=== PATIENT | male | born 1965 | race American Indian/Alaskan Native ===

== ENCOUNTER 2017-01-07 09:58 | Outpatient (CLI) | payer MEDICARE ==
[2017-01-07] MEDS ORDERED: XYLOCAINE TOPICAL 4% TP ONE (10:24)
== END 2017-01-07 09:59 | disposition home or self-care (01) ==
LOC: WOUND 09:58
PROVIDERS: ATTEND Surgery
DX: T81.89XA Other complications of procedures, not elsewhere classified, initial encounter (principal); I11.0 Hypertensive heart disease with heart failure; I50.9 Heart failure, unspecified; Z72.89 Other problems related to lifestyle; Y83.8 Other surgical procedures as the cause of abnormal reaction of the patient, or of later complication, without mention of misadventure at the time of the procedure; Y92.89 Other specified places as the place of occurrence of the external cause
CPT/HCPCS: 11042; G0463

== ENCOUNTER 2017-07-19 10:58 | Day surgery (SDC) | payer MEDICARE ==
[~2017-07-19 10:58] MED LIST: ANCEF/STERILE WATER 2 GM/20 ML 2 GM/20 ML SYRINGE IV NR; NACL 0.9% 1000 ML 1,000 ML IV SCH; VERSED IV NR
[2017-07-19 13:00] LABS: Basophils % (Auto) 0.5 % (0.0-1.8); Eosinophils # (Auto) 0.1 K/mm3 (0.0-0.4); Eosinophils % (Auto) 1.4 % (0.0-4.3); Hematocrit 35.4 % (35.5-45.6); Hemoglobin 11.2 gm/dl (11.8-15.2); Lymphocytes # (Auto) 0.8 K/mm3 (1.2-5.4); Lymphocytes % (Auto) 8.2 % (13.4-35.0); Mean Corpuscular HGB Conc 32 % (32-34); Mean Corpuscular Volume 80 fl (84-94); Monocytes # (Auto) 0.6 K/mm3 (0.0-0.8); Monocytes % (Auto) 5.9 % (0.0-7.3); Platelet Count 218 K/mm3 (140-440); Red Blood Count 4.41 M/mm3 (3.65-5.03); Red Cell Distribution Width 17.2 % (13.2-15.2)
[2017-07-19] MEDS ORDERED: HumuLIN R IV ONE ×2 (13:03→20:00)
[2017-07-19 13:06] LABS: Mean Corpuscular Hemoglobin 26 pg (28-32)
[2017-07-19] MEDS ORDERED: XYLOCAINE MPF 2% ONE (13:11)
[2017-07-19] MEDS ORDERED: DIPRIVAN 10 MG/ML IV ONE ×2 (13:11→13:58)
[2017-07-19] MEDS ORDERED: SUBLIMAZE ONE ×2 (13:12→14:15)
[2017-07-19 13:21] LABS: Calcium 9.5 mg/dL (8.4-10.2)
[2017-07-19] MEDS ORDERED: MARCAINE 0.5% INFILTRATI ONE (14:07)
[2017-07-19] MEDS ORDERED: PROTAMINE SULFATE ONE (14:07)
[2017-07-19] MEDS ORDERED: SODIUM BICARBONATE ONE (14:08)
[2017-07-19] MEDS ORDERED: HEPARIN 10,000 UNITS/10 ML ONE (14:08)
[2017-07-19] MEDS ORDERED: XYLOCAINE 1%/ EPI 1:100,000 INFILTRATI ONE ×2 (14:08→16:43)
[2017-07-19] MEDS ORDERED: NACL 0.9% 500 ML 500 ML ONE (14:08)
--- NOTE | 2017-07-19 14:18 | Anesthesia Day of Surgery ---
Anesthesia Day of Surgery - Day of Surgery Patient Examined: Yes Patient H&P Reviewed: Yes Patient is NPO: Yes
--- NOTE | 2017-07-19 14:19 | Anesthesia Consultation ---
Anesthesia Consult and Med Hx Date of service: 07/19/17 - Airway Anesthetic Teeth Evaluation: Good ROM Head & Neck: Adequate Mental/Hyoid Distance: Inadequate Mallampati Class: Class III Intubation Access Assessment: Possibly Difficult - Pulmonary Exam CTA: Yes - Cardiac Exam Cardiac Exam: RRR - Pre-Operative Health Status ASA Pre-Surgery Classification: ASA4 Proposed Anesthetic Plan: General - Pulmonary Hx Smoking: Yes COPD: Yes (uses O2 sometimes, has not used in over 1 year) - Cardiovascular System Hx Hypertension: Yes (has not taken meds "in a while") Hx Coronary Artery Disease: Yes (2015) Hx Peripheral Vascular Disease: Yes - Central Nervous System Hx Psychiatric Problems: Yes - Endocrine Hx End Stage Renal Disease: Yes (dialysed yesterday) Hx Non-Insulin Dependent Diabetes: Yes - Other Systems Hx Alcohol Use: Yes (occas) Hx Cancer: No Hx Obesity: Yes
[2017-07-19] MEDS ORDERED: ePHEDrine SULFATE ONE (14:31)
[2017-07-19] MEDS ORDERED: RIFADIN ONE (15:41)
[2017-07-19] MEDS ORDERED: NACL 0.9% 50 ML ONE (15:42)
[2017-07-19] MEDS ORDERED: NACL P/F VIAL (10 ML) 10 ML ONE (15:43)
[2017-07-19] MEDS ORDERED: NACL 0.9% 100 ML ONE (15:46)
[2017-07-19] MEDS ORDERED: SODIUM BICARBONATE IV ONE (16:42)
[2017-07-19] MEDS ORDERED: NACL 0.9% 500 ML IV ONE (16:43)
[2017-07-19] MEDS ORDERED: HEPARIN 10,000 UNITS/10 ML IV ONE (16:43)
[2017-07-19] MEDS ORDERED: RIFADIN IV ONE (16:45)
[2017-07-19] MEDS ORDERED: DILAUDID ONE (17:46)
--- NOTE | 2017-07-19 18:14 | Operative Report ---
Operative Report Operative Report: Operative note: Date: 07/19/2017 Preoperative diagnosis: Endstage renal disease on hemodialysis Postoperative diagnosis: Same. Operation: Left arm AV graft creation Surgeon: Xochitl Osei. Asst.: Anesthesia: Gen. EBL: 50 mL Findings: Indications: Operative details: Patient had regional anesthesia done in preoperative area. Then, he was brought to the operating room and placed in supine position with left arm on an arm table. Ultrasound was performed locating brachial artery before takeoff of previous AV fistula as well as axillary vein. Those locations were marked on the skin. Left arm was then prepped and draped in sterile fashion. Timeout was performed and all team members in agreement. First incision was created with 15 blade over medial side of elbow crease in vertical fashion and carried down with electrocautery. Brachial vein was located and taken vessel loop, retracted. Brachial artery was dissected and taken distally and proximally on vessel loops. Next, incision was created with 15 blade over medial upper part of arm in the vertical fashion and carried down with electrocautery. With further dissection axillary vein was identified medial to brachial artery, deep within fibers of biceps. It was taken on vessel loop. 4-7 millimeter AcuSeal graft was tunneled with Naomi Wick tunneler in a curvilinear fashion. At this moment patient was given 2000 units of heparin and allowed to circulate for 3 minutes. Proximal and distal controls were gained. 4 mm portion was beveled at the arterial side. Arteriotomy was created with 11 blade and extended with Greene scissors. Anastomosis was created with 6-0 Prolene in circumferential fashion. Graft was open, clamped at the arterial side and flushed with heparinized saline. The next step, graft was transected beveling at the planned venous anastomosis. The vein was clamped with Satinsky clamp gaining simultaneously distal and proximal controls. Venotomy was created with 11 blade and carried with Greene scissors. Circumferential anastomosis was created with 6-0 Prolene and flushed before completion. 2 repair stitches were placed. Both anastomosis were checked for hemostasis. Graft area was palpated and good thrill appreciated. Wounds were irrigated and checked for hemostasis. Incisions were closed in layers with 3-0 Vicryl interrupted dermal and 4-0 Monocryl running subcuticular. Dermabond was applied. Good radial pulse was palpated at the end of procedure as well as graft thrill. All needles and sponge counts were correct. Patient tolerated the procedure well and was transferred to PACU in stable condition.
--- NOTE | 2017-07-19 18:19 | Short Stay Summary ---
Short Stay Documentation Date of service: 07/19/17 - History H&P: obtained from office - Allergies and Medications Current Medications: Allergies No Known Allergies Allergy (Verified 12/04/16 09:51) Home Medications Medication Instructions Recorded Confirmed Last Taken Type Albuterol Sulfate [Ventolin HFA] 2 puff IH Q6H PRN 12/08/16 12/08/16 07/12/17 History Aspirin [Aspirin TAB] 325 mg PO QDAY 12/08/16 12/08/16 07/18/17 History Carvedilol [Coreg] 6.25 mg PO BID 12/08/16 12/08/16 07/18/17 History Citalopram Hydrobromide [celeXA] 20 mg PO DAILY 12/08/16 12/08/16 07/18/17 History Gabapentin [Neurontin] 300 mg PO Q8HR 12/08/16 12/08/16 07/18/17 History HYDROcodone/ACETAMINOPHEN [Vicodin 1 each PO BID 12/08/16 12/08/16 07/12/17 History HP 10-300 mg TAB] Oxycodone HCl/Acetaminophen 1 each PO BID 12/08/16 12/08/16 07/12/17 History [Percocet 7.5/325 mg] glipiZIDE [Glucotrol] 5 mg PO BID 12/08/16 12/08/16 07/18/17 History HYDROcodone/ACETAMINOPHEN [Vicodin 1 tab PO Q6HR PRN #14 tablet 12/10/16 Unknown Rx HP 10-300 mg TAB] Active Medications Cefazolin Sodium (Ancef/Sterile Water 2 Gm/20 Ml) 2 gm in 20 mls @ 80 mls/hr IV PREOP NR; Protocol Stop: 07/19/17 23:00 Sodium Chloride (Nacl 0.9% 1000 Ml) 1,000 mls @ 42 mls/hr IV DIRECT SHANDA Last Admin: 07/19/17 12:45 Dose: 42 mls/hr Sodium Chloride (Nacl 0.9% 1000 Ml) 1,000 mls @ 42 mls/hr IV DIRECT SHANDA Midazolam HCl (Versed) 2 mg IV PREOP NR Stop: 07/19/17 23:59 Last Admin: 07/19/17 13:45 Dose: 2 mg - Brief post op/procedure progress note Date of procedure: 07/19/17 Pre-op diagnosis: ESRD on HD via permcath Post-op diagnosis: same Procedure: left UE AVG placement Anesthesia: ISABEL Surgeon: ALEXANDRE AG Estimated blood loss: 50-100ml Pathology: none - Disposition Condition at discharge: Good Disposition: DC-01 TO HOME OR SELFCARE Short Stay Discharge Plan Diet: renal Wound: open to air Special Instructions: no heavy lifting Follow up with: PRIMARY CAREMD [Primary Care Provider] - 7 Days ALEXANDRE AG DO [Staff Physician] - 14 Days Prescriptions: HYDROcodone/APAP 7.5-325 [[place] 7.5/325] 1 each PO Q6HR PRN #20 tablet PRN Reason: Pain
[2017-07-19] MEDS ORDERED: DILAUDID IV PRN (18:36)
[2017-07-19] MEDS ORDERED: ZOFRAN IV PRN (18:36)
[2017-07-19] MEDS ORDERED: PERCOCET 5/325 PO PRN (18:36)
--- NOTE | 2017-07-19 18:38 | Post Anesthesia Evaluation ---
- Post Anesthesia Evaluation Patient Participated: Yes Airway Patent: Yes Stable Respiratory Function: Yes Nausea/Vomiting: No Temp > 96.8F: Yes Pain Manageable: Yes Adequeate Hydration: Yes Anesthesia Complications: No Block Receding Appropriately: Not Applicable Patient on Ventilator: No
[2017-07-19] MEDS ORDERED: HumuLIN R ONE (19:33)
[2017-07-19] MEDS ORDERED: NORCO 7.5/325 PO PRN (20:17)
[2017-07-19 22:00] VITALS: BP 140/66
== END 2017-07-19 10:59 | disposition home or self-care (01) ==
LOC: OR 10:58
PROVIDERS: ATTEND Surgery Vascular Surgery
DX: I13.2 Hypertensive heart and chronic kidney disease with heart failure and with stage 5 chronic kidney disease, or end stage renal disease (principal); N18.6 End stage renal disease; I50.9 Heart failure, unspecified; I25.10 Atherosclerotic heart disease of native coronary artery without angina pectoris; I25.2 Old myocardial infarction; J44.9 Chronic obstructive pulmonary disease, unspecified; E11.22 Type 2 diabetes mellitus with diabetic chronic kidney disease; E11.51 Type 2 diabetes mellitus with diabetic peripheral angiopathy without gangrene; E66.9 Obesity, unspecified; F17.210 Nicotine dependence, cigarettes, uncomplicated; Z79.899 Other long term (current) drug therapy; Z99.81 Dependence on supplemental oxygen; Z68.41 Body mass index [BMI] 40.0-44.9, adult; Z79.84 Long term (current) use of oral hypoglycemic drugs
CPT/HCPCS: 36415; 36830; 80048; 82962; 85025; C1768; J0690; J1170; J1644; J2250; J2704; J3010; J3490; J7030; J7040; J1815; J2720

== ENCOUNTER 2017-09-10 06:21 | Inpatient (IN) | payer MEDICARE ==
[~2017-09-10 06:21] MED LIST changes: -VERSED IV NR
[2017-09-10 07:11] LABS: Basophils # (Auto) 0.1 K/mm3 (0.0-0.1); Basophils % (Auto) 0.8 % (0.0-1.8); Eosinophils # (Auto) 0.2 K/mm3 (0.0-0.4); Eosinophils % (Auto) 2.4 % (0.0-4.3); Hematocrit 40.1 % (35.5-45.6); Hemoglobin 12.9 gm/dl (11.8-15.2); Lymphocytes # (Auto) 1.5 K/mm3 (1.2-5.4); Lymphocytes % (Auto) 19.1 % (13.4-35.0); Mean Corpuscular HGB Conc 32 % (32-34); Mean Corpuscular Hemoglobin 28 pg (28-32); Mean Corpuscular Volume 86 fl (84-94); Monocytes # (Auto) 0.9 K/mm3 (0.0-0.8); Monocytes % (Auto) 10.9 % (0.0-7.3); Platelet Count 134 K/mm3 (140-440); Red Blood Count 4.68 M/mm3 (3.65-5.03)
[2017-09-10 07:22] LABS: Calcium 9.1 mg/dL (8.4-10.2)
[2017-09-10] MEDS ORDERED: ZOFRAN IV PRN (07:30)
[2017-09-10] MEDS ORDERED: DILAUDID IV PRN (07:30)
[2017-09-10] MEDS ORDERED: SUBLIMAZE ONE ×2 (07:30→08:27)
[2017-09-10] MEDS ORDERED: DIPRIVAN 10 MG/ML IV ONE (07:30)
[2017-09-10] MEDS ORDERED: XYLOCAINE MPF 2% ONE (07:35)
[2017-09-10] MEDS ORDERED: VERSED IV NR (08:00)
[2017-09-10] MEDS ORDERED: NACL 0.9% 1000 ML 1,000 ML IV SCH (08:00)
[2017-09-10] MEDS ORDERED: ePHEDrine 50 MG/5 ML-0.9% NACL IV ONE (08:24)
[2017-09-10] MEDS ORDERED: BENADRYL ONE (08:24)
--- NOTE | 2017-09-10 08:24 | Anesthesia Consultation ---
Anesthesia Consult and Med Hx Date of service: 09/10/17 - Airway Anesthetic Teeth Evaluation: Poor, Chipped ROM Head & Neck: Adequate Mental/Hyoid Distance: Adequate Mallampati Class: Class IV Intubation Access Assessment: Possibly Difficult - Pulmonary Exam CTA: Yes (Patient saturating 100% on room air in supine position) - Cardiac Exam Cardiac Exam: No Murmur - Pre-Operative Health Status ASA Pre-Surgery Classification: ASA4 Proposed Anesthetic Plan: General - Pre-Anesthesia Comment Pre-Anesthesia Comments: CHF: c/o PND symptoms. can't sleep lying flat. ESRD : last dialysis yesterday. Labs today acceptable. Current Smoker. Patient tolerates 4 METS: limited by leg discomfort and SOB. Protuberant abdomen - Pulmonary Hx Smoking: Yes COPD: Yes (uses O2 sometimes, has not used in over 1 year) - Cardiovascular System Hx Hypertension: Yes (has not taken meds "in a while") Hx Coronary Artery Disease: Yes (2015) Hx Peripheral Vascular Disease: Yes - Central Nervous System Hx Psychiatric Problems: Yes - Endocrine Hx End Stage Renal Disease: Yes Hx Non-Insulin Dependent Diabetes: Yes - Other Systems Hx Alcohol Use: Yes (occas) Hx Cancer: No Hx Obesity: Yes
--- NOTE | 2017-09-10 08:25 | Anesthesia Day of Surgery ---
Anesthesia Day of Surgery - Day of Surgery Patient Examined: Yes Patient H&P Reviewed: Yes Patient is NPO: Yes
[2017-09-10] MEDS ORDERED: NEO SYNEPHRINE ONE ×2 (08:42→12:34)
[2017-09-10] MEDS ORDERED: HEPARIN 10,000 UNITS/10 ML ONE (11:06)
[2017-09-10] MEDS ORDERED: NACL 0.9% 250ML 250 ML ONE (11:07)
[2017-09-10] MEDS ORDERED: MARCAINE 0.5% 30 ML INFILTRATI ONE (12:23)
[2017-09-10] MEDS ORDERED: ANCEF ONE (12:23)
[2017-09-10] MEDS ORDERED: NACL 0.9% IR ONE (12:30)
[2017-09-10] MEDS ORDERED: NACL 0.9% 250ML IV ONE (12:30)
[2017-09-10] MEDS ORDERED: MARCAINE 0.5% INFILTRATI ONE (12:30)
[2017-09-10] MEDS ORDERED: HEPARIN 10,000 UNITS/10 ML IV ONE (12:30)
[2017-09-10] MEDS ORDERED: ZOFRAN ONE (12:51)
[2017-09-10] MEDS ORDERED: BREVIBLOC IV ONE (13:04)
--- NOTE | 2017-09-10 13:19 | Post Operative Note ---
Pre-op diagnosis: infected left arm AV graft Post-op diagnosis: same Findings: purulent cell changer to arterial anastomosis Procedure: excision of infected left arm AVG brachial artery endarterectomy with patch angioplasty Anesthesia: ISABEL Surgeon: ALEXANDRE AG Burrer Marker Axle: JANE MAHONEY (second assistant store manager Dandre Alston) Estimated blood loss: other (200cc) Specimen disposition: other (graft send to microbiology lab, wound cultures sent ) Condition: stable Disposition: same day
--- NOTE | 2017-09-10 13:23 | Short Stay Summary ---
Short Stay Documentation Date of service: 09/10/17 - History H&P: obtained from office - Allergies and Medications Current Medications: Allergies No Known Allergies Allergy (Verified 09/08/17 10:38) Home Medications Medication Instructions Recorded Confirmed Last Taken Type Albuterol Sulfate [Ventolin HFA] 2 puff IH Q6H PRN 12/08/16 09/10/17 09/09/17 23 :00 History Aspirin [Aspirin TAB] 325 mg PO QDAY 12/08/16 09/10/17 09/09/17 23:00 History Carvedilol [Coreg] 6.25 mg PO BID 12/08/16 09/10/17 09/09/17 23:00 History Citalopram Hydrobromide [celeXA] 20 mg PO DAILY 12/08/16 09/10/17 09/09/17 23: 00 History Gabapentin [Neurontin] 300 mg PO Q8HR 12/08/16 09/10/17 09/09/17 23:00 History HYDROcodone/ACETAMINOPHEN [Vicodin 1 each PO BID 12/08/16 09/08/17 07/12/17 History HP 10-300 mg TAB] Oxycodone HCl/Acetaminophen 1 each PO BID 12/08/16 09/08/17 07/12/17 History [Percocet 7.5/325 mg] glipiZIDE [Glucotrol] 5 mg PO BID 12/08/16 09/10/17 09/09/17 23:00 History HYDROcodone/ACETAMINOPHEN [Vicodin 1 tab PO Q6HR PRN #14 tablet 12/10/16 Unknown Rx HP 10-300 mg TAB] HYDROcodone/APAP 7.5-325 [[place] 1 each PO Q6HR PRN #20 tablet 07/19/17 09/08/17 Unknown Rx 7.5/325] Active Medications Hydromorphone HCl (Dilaudid) 0.25 mg IV Q10MIN PRN PRN Reason: Pain, Moderate (4-6) Stop: 09/10/17 18:00 Cefazolin Sodium (Ancef/Sterile Water 2 Gm/20 Ml) 2 gm in 20 mls @ 80 mls/hr IV PREOP NR; Protocol Stop: 09/10/17 23:59 Sodium Chloride (Nacl 0.9% 1000 Ml) 1,000 mls @ 42 mls/hr IV DIRECT SHANDA Last Admin: 09/10/17 07:10 Dose: 42 mls/hr Midazolam HCl (Versed) 2 mg IV PREOP NR Stop: 09/10/17 23:59 Ondansetron HCl (Zofran) 4 mg IV ONCE PRN PRN Reason: Nausea And Vomiting Stop: 09/10/17 18:00 - Brief post op/procedure progress note Date of procedure: 09/10/17 - Disposition Condition at discharge: Good Disposition: DC-01 TO HOME OR SELFCARE Short Stay Discharge Plan Diet: renal Wound: per wound nurse instructions Follow up with: PRIMARY CARE, [Primary Care Provider] - 7 Days
[2017-09-10] MEDS ORDERED: ALBURX 25% (ALBUMIN) IV ONE (14:40)
[2017-09-10] MEDS ORDERED: ALBUTEIN IV ONE (14:44)
[2017-09-10] MEDS ORDERED: NEO-SYNEPHRINE 100 MG in NACL 0.9% 90 ML IV SCH (16:45)
[2017-09-10] MEDS ORDERED: NACL 0.9% 500 ML 500 ML IV ONE (17:29)
[2017-09-10 17:34] LABS: Basophils # (Auto) 0.1 K/mm3 (0.0-0.1); Basophils % (Auto) 0.4 % (0.0-1.8); Eosinophils # (Auto) 0.1 K/mm3 (0.0-0.4); Eosinophils % (Auto) 1.2 % (0.0-4.3); Hematocrit 37.1 % (35.5-45.6); Hemoglobin 11.7 gm/dl (11.8-15.2); Lymphocytes # (Auto) 1.2 K/mm3 (1.2-5.4); Lymphocytes % (Auto) 10.2 % (13.4-35.0); Mean Corpuscular HGB Conc 32 % (32-34); Mean Corpuscular Hemoglobin 27 pg (28-32); Mean Corpuscular Volume 87 fl (84-94); Monocytes # (Auto) 0.9 K/mm3 (0.0-0.8); Monocytes % (Auto) 7.4 % (0.0-7.3); Platelet Count 130 K/mm3 (140-440); Red Blood Count 4.29 M/mm3 (3.65-5.03)
[2017-09-10 17:40] LABS: Red Cell Distribution Width 20.4 % (13.2-15.2)
--- NOTE | 2017-09-10 18:34 | History and Physical Report ---
History of Present Illness Date of examination: 09/10/17 Date of admission: 09/10/17 Chief complaint: Chief complaint: Low blood pressure after AV graft removal Fever of 2 days duration. History of present illness: History of present illness: 51-year-old black male with history of end-stage renal disease, AV graft removal today being admitted for low blood pressure and fever. Postop patient was very hypertensive and was started on Zeus-Synephrine drip. Patient is alert and oriented and able to give his medical history. Low-grade fever for last 2 days. Patient notices the pus drainage from the left AV graft for last 5 days. Patient followed up with vascular surgery and it was decided to remove AV graft today. Post AV graft removal patient was hypotensive and had low-grade fever. Patient being admitted for sepsis and hypotension. Patient was evaluated in the PACU. Past medical history: Hypertension Asthma peripheral neuropathy Chronic pain Type 2 diabetes Past surgical history AV graft insertion AV graft removal today secondary to infection Family history: hypertension Social history: Doesn't smoke No alcohol No recreational drugs Review of systems: Patient is hypertensive and is low-grade fever pain at the AV graft removal site. Also pus in the AV graft for the last 4 days which is removed today. Review of systems otherwise negative 14 point review of systems done Medications and Allergies Allergies Allergy/AdvReac Type Severity Reaction Status Date / Time No Known Allergies Allergy Verified 09/08/17 10:38 Home Medications Medication Instructions Recorded Confirmed Last Taken Type Albuterol Sulfate [Ventolin HFA] 2 puff IH Q6H PRN 12/08/16 09/10/17 09/09/17 23 :00 History Aspirin [Aspirin TAB] 325 mg PO QDAY 12/08/16 09/10/17 09/09/17 23:00 History Carvedilol [Coreg] 6.25 mg PO BID 12/08/16 09/10/17 09/09/17 23:00 History Citalopram Hydrobromide [celeXA] 20 mg PO DAILY 12/08/16 09/10/17 09/09/17 23: 00 History Gabapentin [Neurontin] 300 mg PO Q8HR 12/08/16 09/10/17 09/09/17 23:00 History HYDROcodone/ACETAMINOPHEN [Vicodin 1 each PO BID 12/08/16 09/08/17 07/12/17 History HP 10-300 mg TAB] Oxycodone HCl/Acetaminophen 1 each PO BID 12/08/16 09/08/17 07/12/17 History [Percocet 7.5/325 mg] glipiZIDE [Glucotrol] 5 mg PO BID 12/08/16 09/10/17 09/09/17 23:00 History HYDROcodone/ACETAMINOPHEN [Vicodin 1 tab PO Q6HR PRN #14 tablet 12/10/16 Unknown Rx HP 10-300 mg TAB] HYDROcodone/APAP 7.5-325 [[place] 1 each PO Q6HR PRN #20 tablet 07/19/17 09/08/17 Unknown Rx 7.5/325] HYDROcodone/ACETAMINOPHEN [[place] 1 each PO Q4-6H #30 tablet 09/10/17 Unknown Rx 10-325 Tablet] Active Meds: Active Medications Cefazolin Sodium (Ancef/Sterile Water 2 Gm/20 Ml) 2 gm in 20 mls @ 80 mls/hr IV PREOP NR; Protocol Stop: 09/10/17 23:59 Sodium Chloride (Nacl 0.9% 1000 Ml) 1,000 mls @ 42 mls/hr IV DIRECT SHANDA Last Admin: 09/10/17 07:10 Dose: 42 mls/hr Phenylephrine HCl 100 mg/ (Sodium Chloride) 100 mls @ 3 mls/hr IV TITR SHANDA; Protocol Midazolam HCl (Versed) 2 mg IV PREOP NR Stop: 09/10/17 23:59 Review of Systems All systems: negative Exam - Physical Exam Narrative exam: Lying in bed comfortable - Constitutional Vitals: Temp Pulse Resp BP Pulse Ox 98.2 F 87 18 88/40 99 09/10/17 16:15 09/10/17 16:30 09/10/17 16:30 09/10/17 16:30 09/10/17 16:30 General appearance: Present: no acute distress, well-nourished - EENT Eyes: Present: PERRL ENT: hearing intact, clear oral mucosa - Neck Neck: Present: supple, normal ROM - Respiratory Respiratory effort: normal Respiratory: bilateral: CTA - Cardiovascular Heart rate: 80 Rhythm: regular Heart Sounds: Present: S1 & S2. Absent: rub, click - Extremities Extremities: no ischemia, pulses intact, pulses symmetrical, No edema Peripheral Pulses: within normal limits - Abdominal General gastrointestinal: Present: soft, non-tender, non-distended, normal bowel sounds Male genitourinary: Present: normal - Rectal Rectal Exam: deferred - Integumentary Integumentary: Present: clear, warm, dry - Musculoskeletal Musculoskeletal: gait normal, strength equal bilaterally - Psychiatric Psychiatric: appropriate mood/affect, intact judgment & insight - Neurologic Neurologic: CNII-XII intact, moves all extremities - Allied Health Allied health notes reviewed: nursing, case management Results - Labs CBC & Chem 7: 09/10/17 17:15 09/10/17 06:55 Labs: Laboratory Last Values WBC 11.7 K/mm3 (4.5-11.0) H 09/10/17 17:15 RBC 4.29 M/mm3 (3.65-5.03) 09/10/17 17:15 Hgb 11.7 gm/dl (11.8-15.2) L 09/10/17 17:15 Hct 37.1 % (35.5-45.6) 09/10/17 17:15 MCV 87 fl (84-94) 09/10/17 17:15 MCH 27 pg (28-32) L 09/10/17 17:15 MCHC 32 % (32-34) 09/10/17 17:15 RDW 20.4 % (13.2-15.2) H 09/10/17 17:15 Plt Count 130 K/mm3 (140-440) L 09/10/17 17:15 Lymph % (Auto) 10.2 % (13.4-35.0) L 09/10/17 17:15 [place] % (Auto) 7.4 % (0.0-7.3) H 09/10/17 17:15 Eos % (Auto) 1.2 % (0.0-4.3) 09/10/17 17:15 Baso % (Auto) 0.4 % (0.0-1.8) 09/10/17 17:15 Lymph # 1.2 K/mm3 (1.2-5.4) 09/10/17 17:15 [place] # 0.9 K/mm3 (0.0-0.8) H 09/10/17 17:15 Eos # 0.1 K/mm3 (0.0-0.4) 09/10/17 17:15 Baso # 0.1 K/mm3 (0.0-0.1) 09/10/17 17:15 Seg Neutrophils % 80.8 % (40.0-70.0) H 09/10/17 17:15 Seg Neutrophils # 9.4 K/mm3 (1.8-7.7) H 09/10/17 17:15 Sodium 137 mmol/L (137-145) 09/10/17 06:55 Potassium 3.9 mmol/L (3.6-5.0) 09/10/17 06:55 Chloride 92.8 mmol/L (98-107) L 09/10/17 06:55 Carbon Dioxide 29 mmol/L (22-30) 09/10/17 06:55 Anion Gap 19 mmol/L 09/10/17 06:55 BUN 30 mg/dL (9-20) H 09/10/17 06:55 Creatinine 4.3 mg/dL (0.8-1.5) H 09/10/17 06:55 Estimated GFR 18 ml/min 09/10/17 06:55 BUN/Creatinine Ratio 7 % 09/10/17 06:55 Glucose 98 mg/dL (75-100) 09/10/17 06:55 POC Glucose 183 (70-105) H 09/10/17 16:06 Calcium 9.1 mg/dL (8.4-10.2) 09/10/17 06:55 Blood Type O POSITIVE 09/10/17 17:15 Antibody Screen Negative 09/10/17 17:15 Crossmatch See Detail 09/10/17 17:15 - Imaging and Cardiology EKG: report reviewed Assessment and Plan Assessment and plan: Critical care statement The high probability of clinically significant side and no life-threatening deterioration of the pulmonary cardiac and renal systems require melphalan back attention, intervention and personal management. The aggregate critical care time was 40 minutes. This time is in addition to the time spent performing reported procedures were includes the following #1 data review and interpretati #2 patient assessment and monitoring of vital sign #3 documentation #4 medication orders and management Advance Directives: Yes (full code) VTE prophylaxis?: Chemical Plan of care discussed with patient/family: Yes - Patient Problems (1) Sepsis Current Visit: Yes Status: Acute Qualifiers: Sepsis type: sepsis due to unspecified organism Qualified Code(s): A41.9 - Sepsis, unspecified organism Plan to address problem: Patient is septic Patient had pus drainage from the AV graft in the left upper extremity for 4 days and also fever. Now patient is hypotensive on Zeus-Synephrine drip. Patient started on IV Zosyn and IV vancomycin. Store Grocery Merchandiser consult requested. Nephrology consult requested. Blood cultures ordered (2) Hypertension Current Visit: Yes Status: Acute Qualifiers: Hypertension type: unspecified Qualified Code(s): I10 - Essential (primary ) hypertension Plan to address problem: We'll hold the blood pressure medications for the time being (3) Hypotension Current Visit: Yes Status: Acute Qualifiers: Hypotension type: unspecified hypotension type Qualified Code(s): I95.9 - Hypotension, unspecified Plan to address problem: Secondary to sepsis Patient on Zeus-Synephrine drip (4) End stage renal disease Current Visit: Yes Status: Chronic Plan to address problem: Nephrology consulted Continue hemodialysis (5) Type 2 diabetes mellitus Current Visit: Yes Status: Chronic Qualifiers: Diabetes mellitus prison insulin use: without prison use Plan to address problem: coverage for now Hold oral hypoglycemics Check hemoglobin A1c (6) Peripheral neuropathy Current Visit: Yes Status: Chronic Qualifiers: Peripheral neuropathy type: polyneuropathy, unspecified Qualified Code(s): G62.9 - Polyneuropathy, unspecified Plan to address problem: Continue gabapentin (7) DVT prophylaxis Current Visit: Yes Status: Acute Plan to address problem: Heparin 5000 every 12 initiated
[2017-09-10] MEDS ORDERED: VANCOMYCIN/NS 1 GM/250 ML 1 GM/250 ML BAG IV SCH (19:00)
[2017-09-10] MEDS ORDERED: VANCOMYCIN PHARMACY TO DOSE IV SCH ×2 (19:00→21:00)
[2017-09-10] MEDS ORDERED: TYLENOL PO ONE (19:01)
[2017-09-10] MEDS ORDERED: VANCOMYCIN 2,000 MG in NACL 0.9% 500 ML 500 ML IV ONE (19:35)
[2017-09-10] MEDS ORDERED: D50W (25GM) Syringe IV PRN ×2 (19:42)
[2017-09-10] MEDS ORDERED: SODIUM CHLORIDE FLUSH SYRINGE 10 ML IV PRN (19:42)
[2017-09-10] MEDS ORDERED: XANAX PO PRN (19:42)
[2017-09-10] MEDS ORDERED: PERCOCET 5/325 PO PRN (19:42)
[2017-09-10] MEDS ORDERED: HYDROCODONE PO PRN (19:52)
[2017-09-10] MEDS ORDERED: ACETAMINOPHEN PO PRN (19:52)
[2017-09-10] MEDS ORDERED: NORCO 10/325 PO PRN (21:50)
[2017-09-10] MEDS ORDERED: ZOSYN/NS 3.375GM/50ML 3.375 GM/50 ML BAG IV ONE (22:00)
[2017-09-10] MEDS ORDERED: ZOSYN/NS 2.25 GM/50ML 2.25 GM/50 ML BAG IV SCH (22:00)
[2017-09-10] MEDS: HEPARIN SUB-Q SCH (23:41)
[2017-09-10] MEDS: SODIUM CHLORIDE FLUSH SYRINGE 10 ML IV SCH (23:43)
[2017-09-10] MEDS: PEPCID IV SCH (23:43)
[2017-09-11] MEDS ORDERED: ZOSYN/NS 2.25 GM/50ML 2.25 GM/50 ML BAG IV SCH (06:00)
[2017-09-11] MEDS: HumaLOG SUB-Q SCH ×4 (08:42→22:13)
[2017-09-11] MEDS: MORPHINE IV PRN ×2 (09:46→22:17)
[2017-09-11] MEDS: HEPARIN SUB-Q SCH ×2 (09:50→22:14)
[2017-09-11] MEDS: ASPIRIN PO SCH (09:50)
[2017-09-11] MEDS: SODIUM CHLORIDE FLUSH SYRINGE 10 ML IV SCH (09:51)
[2017-09-11] MEDS: PEPCID IV SCH (09:51)
[2017-09-11] MEDS: celeXA PO SCH (09:52)
--- NOTE | 2017-09-11 10:15 | Consultation ---
History of Present Illness - Reason for Consult Consult date: 09/11/17 Hypotension Requesting physician: STEVEN RAMIREZ - History of Present Illness 51 y/o male with infected AV graft. patient was hypotensive in pacu and briefly required vasopressor therapy so transferred to ICU for further monitoring. Weaned off pressors very early in stay. Awake and alert. Stable. Graft removed and no immediate complications. Past History Past Medical History: CAD, ESRD, other (Neuropathy) Past Surgical History: Other (aVM removal) Social history: no significant social history Family history: no significant family history Medications and Allergies Allergies Allergy/AdvReac Type Severity Reaction Status Date / Time No Known Allergies Allergy Verified 09/08/17 10:38 Home Medications Medication Instructions Recorded Confirmed Last Taken Type Albuterol Sulfate [Ventolin HFA] 2 puff IH Q6H PRN 12/08/16 09/10/17 09/09/17 23 :00 History Aspirin [Aspirin TAB] 325 mg PO QDAY 12/08/16 09/10/17 09/09/17 23:00 History Carvedilol [Coreg] 6.25 mg PO BID 12/08/16 09/10/17 09/09/17 23:00 History Citalopram Hydrobromide [celeXA] 20 mg PO DAILY 12/08/16 09/10/17 09/09/17 23: 00 History Gabapentin [Neurontin] 300 mg PO Q8HR 12/08/16 09/10/17 09/09/17 23:00 History HYDROcodone/ACETAMINOPHEN [Vicodin 1 each PO BID 12/08/16 09/08/17 07/12/17 History HP 10-300 mg TAB] Oxycodone HCl/Acetaminophen 1 each PO BID 12/08/16 09/08/17 07/12/17 History [Percocet 7.5/325 mg] glipiZIDE [Glucotrol] 5 mg PO BID 12/08/16 09/10/17 09/09/17 23:00 History HYDROcodone/ACETAMINOPHEN [Vicodin 1 tab PO Q6HR PRN #14 tablet 12/10/16 Unknown Rx HP 10-300 mg TAB] HYDROcodone/APAP 7.5-325 [[place] 1 each PO Q6HR PRN #20 tablet 07/19/17 09/08/17 Unknown Rx 7.5/325] HYDROcodone/ACETAMINOPHEN [[place] 1 each PO Q4-6H #30 tablet 09/10/17 Unknown Rx 10-325 Tablet] Active Meds: Active Medications Acetaminophen/Hydrocodone Bitart ([place] 10/325) 1 each PO Q6H PRN PRN Reason: Pain, Moderate (4-6) Alprazolam (Xanax) 0.25 mg PO Q8H PRN PRN Reason: Anxiety Aspirin (Aspirin) 325 mg PO QDAY [facility] Last Admin: 09/11/17 09:50 Dose: 325 mg Citalopram Hydrobromide (Celexa) 20 mg PO DAILY [facility] Last Admin: 09/11/17 09:52 Dose: 20 mg Dextrose (D50w (25gm) Syringe) 50 ml IV PRN PRN PRN Reason: Hypoglycemia Famotidine (Pepcid) 20 mg IV DAILY [facility] Last Admin: 09/11/17 09:51 Dose: 20 mg Heparin Sodium (Porcine) (Heparin) 5,000 unit SUB-Q Q12HR [facility] Last Admin: 09/11/17 09:50 Dose: 5,000 unit Sodium Chloride (Nacl 0.9% 1000 Ml) 1,000 mls @ 42 mls/hr IV DIRECT [facility] Last Admin: 09/10/17 07:10 Dose: 42 mls/hr Phenylephrine HCl 100 mg/ (Sodium Chloride) 100 mls @ 3 mls/hr IV TITR [facility]; Protocol Last Titration: 09/10/17 23:40 Dose: 0 mcg/min, 0 mls/hr Piperacillin Sod/Tazobactam Sod (Zosyn/Ns 2.25 Gm/50ml) 2.25 gm in 50 mls @ 100 mls/hr IV Q8HR [facility]; Protocol Insulin Human Lispro (Humalog) 0 unit SUB-Q ACHS [facility]; Protocol Last Admin: 09/11/17 08:42 Dose: Not Given Morphine Sulfate (Morphine) 2 mg IV Q4H PRN PRN Reason: Pain, Moderate (4-6) Last Admin: 09/11/17 09:46 Dose: 2 mg Oxycodone/Acetaminophen (Percocet 5/325) 1 tab PO Q6H PRN PRN Reason: Pain, Moderate (4-6) Sodium Chloride (Sodium Chloride Flush Syringe 10 Ml) 10 ml IV BID [facility] Last Admin: 09/11/17 09:51 Dose: 10 ml Sodium Chloride (Sodium Chloride Flush Syringe 10 Ml) 10 ml IV PRN PRN PRN Reason: LINE FLUSH Vancomycin HCl (Vancomycin Pharmacy To Dose) 1 each IV PKCONSULT [facility]; Protocol Review of Systems All systems: negative Exam - Constitutional Vitals: Temp Pulse Resp BP Pulse Ox 98.4 F 89 16 146/89 100 09/11/17 03:16 09/10/17 21:00 09/11/17 07:00 09/10/17 21:00 09/11/17 07:00 General appearance: Present: no acute distress, well-nourished, obese - EENT Eyes: Present: PERRL, EOM intact ENT: hearing intact - Neck Neck: Present: supple, normal ROM - Respiratory Respiratory effort: normal Respiratory: bilateral: CTA - Cardiovascular Rhythm: regular Heart Sounds: Present: S1 & S2 - Extremities Extremities: no ischemia - Abdominal General gastrointestinal: Present: soft, non-tender Male genitourinary: Present: deferred - Rectal Rectal Exam: deferred - Integumentary Integumentary: Present: clear, warm, dry - Musculoskeletal Musculoskeletal: strength equal bilaterally Results - Labs CBC & Chem 7: 09/10/17 17:15 09/10/17 06:55 Labs: Abnormal lab results 09/10/17 09/10/17 09/10/17 Range/Units 13:52 16:06 17:15 WBC 11.7 H (4.5-11.0) K/mm3 Hgb 11.7 L (11.8-15.2) gm/dl MCH 27 L (28-32) pg RDW 20.4 H (13.2-15.2) % Plt Count 130 L (140-440) K/mm3 Lymph % (Auto) 10.2 L (13.4-35.0) % [place] % (Auto) 7.4 H (0.0-7.3) % [place] # 0.9 H (0.0-0.8) K/mm3 Seg Neutrophils % 80.8 H (40.0-70.0) % Seg Neutrophils # 9.4 H (1.8-7.7) K/mm3 POC Glucose 130 H 183 H (70-105) Hemoglobin A1c (4-6) % Crossmatch 0609/10/17 09/10/17 Range/Units 17:15 20:34 21:49 WBC (4.5-11.0) K/mm3 Hgb (11.8-15.2) gm/dl MCH (28-32) pg RDW (13.2-15.2) % Plt Count (140-440) K/mm3 Lymph % (Auto) (13.4-35.0) % [place] % (Auto) (0.0-7.3) % [place] # (0.0-0.8) K/mm3 Seg Neutrophils % (40.0-70.0) % Seg Neutrophils # (1.8-7.7) K/mm3 POC Glucose 160 H (70-105) Hemoglobin A1c 8.9 H (4-6) % Crossmatch See Detail 09/11/17 Range/Units 08:06 WBC (4.5-11.0) K/mm3 Hgb (11.8-15.2) gm/dl MCH (28-32) pg RDW (13.2-15.2) % Plt Count (140-440) K/mm3 Lymph % (Auto) (13.4-35.0) % [place] % (Auto) (0.0-7.3) % [place] # (0.0-0.8) K/mm3 Seg Neutrophils % (40.0-70.0) % Seg Neutrophils # (1.8-7.7) K/mm3 POC Glucose 132 H (70-105) Hemoglobin A1c (4-6) % Crossmatch Assessment and Plan 51 y/o male with infected AV graft, removed with post-op hypotension, now resolved. stable from a critical care standpoint Will transfer out of ICU Follow up vascular recs.
--- NOTE | 2017-09-11 10:59 | Consultation ---
History of Present Illness - Reason for Consult Consult date: 09/11/17 end stage renal disease Requesting physician: STEVEN RAMIREZ - History of Present Illness 51-year-old black male with history of end-stage renal disease, AV graft removal today being admitted for low blood pressure and fever. Postop patient was very hypertensive and was started on Zeus-Synephrine drip. Patient is alert and oriented and able to give his medical history. Low-grade fever for last 2 days. Patient notices the pus drainage from the left AV graft for last 5 days. Patient followed up with vascular surgery and it was decided to remove AV graft today. Post AV graft removal patient was hypotensive and had low-grade fever. Patient being admitted for sepsis and hypotension. Patient was evaluated in the PACU. Past medical history: Hypertension Asthma peripheral neuropathy Chronic pain Type 2 diabetes Past surgical history AV graft insertion AV graft removal today secondary to infection Family history: hypertension Social history: Doesn't smoke No alcohol No recreational drugs Review of systems: Patient is hypertensive and is low-grade fever pain at the AV graft removal site. Also pus in the AV graft for the last 4 days which is removed today. Review of systems otherwise negative 14 point review of systems done Past History Past Medical History: CAD, ESRD, other (Neuropathy) Past Surgical History: Other (aVM removal) Social history: no significant social history Family history: no significant family history Medications and Allergies Allergies Allergy/AdvReac Type Severity Reaction Status Date / Time No Known Allergies Allergy Verified 09/08/17 10:38 Home Medications Medication Instructions Recorded Confirmed Last Taken Type Albuterol Sulfate [Ventolin HFA] 2 puff IH Q6H PRN 12/08/16 09/10/17 09/09/17 23 :00 History Aspirin [Aspirin TAB] 325 mg PO QDAY 12/08/16 09/10/17 09/09/17 23:00 History Carvedilol [Coreg] 6.25 mg PO BID 12/08/16 09/10/17 09/09/17 23:00 History Citalopram Hydrobromide [celeXA] 20 mg PO DAILY 12/08/16 09/10/17 09/09/17 23: 00 History Gabapentin [Neurontin] 300 mg PO Q8HR 12/08/16 09/10/17 09/09/17 23:00 History HYDROcodone/ACETAMINOPHEN [Vicodin 1 each PO BID 12/08/16 09/08/17 07/12/17 History HP 10-300 mg TAB] Oxycodone HCl/Acetaminophen 1 each PO BID 12/08/16 09/08/17 07/12/17 History [Percocet 7.5/325 mg] glipiZIDE [Glucotrol] 5 mg PO BID 12/08/16 09/10/17 09/09/17 23:00 History HYDROcodone/ACETAMINOPHEN [Vicodin 1 tab PO Q6HR PRN #14 tablet 12/10/16 Unknown Rx HP 10-300 mg TAB] HYDROcodone/APAP 7.5-325 [[place] 1 each PO Q6HR PRN #20 tablet 07/19/17 09/08/17 Unknown Rx 7.5/325] HYDROcodone/ACETAMINOPHEN [[place] 1 each PO Q4-6H #30 tablet 09/10/17 Unknown Rx 10-325 Tablet] Active Meds: Active Medications Acetaminophen/Hydrocodone Bitart ([place] 10/325) 1 each PO Q6H PRN PRN Reason: Pain, Moderate (4-6) Alprazolam (Xanax) 0.25 mg PO Q8H PRN PRN Reason: Anxiety Aspirin (Aspirin) 325 mg PO QDAY [facility] Last Admin: 09/11/17 09:50 Dose: 325 mg Citalopram Hydrobromide (Celexa) 20 mg PO DAILY [facility] Last Admin: 09/11/17 09:52 Dose: 20 mg Dextrose (D50w (25gm) Syringe) 50 ml IV PRN PRN PRN Reason: Hypoglycemia Famotidine (Pepcid) 20 mg IV DAILY [facility] Last Admin: 09/11/17 09:51 Dose: 20 mg Heparin Sodium (Porcine) (Heparin) 5,000 unit SUB-Q Q12HR [facility] Last Admin: 09/11/17 09:50 Dose: 5,000 unit Sodium Chloride (Nacl 0.9% 1000 Ml) 1,000 mls @ 42 mls/hr IV DIRECT [facility] Last Admin: 09/10/17 07:10 Dose: 42 mls/hr Phenylephrine HCl 100 mg/ (Sodium Chloride) 100 mls @ 3 mls/hr IV TITR [facility]; Protocol Last Titration: 09/10/17 23:40 Dose: 0 mcg/min, 0 mls/hr Piperacillin Sod/Tazobactam Sod (Zosyn/Ns 2.25 Gm/50ml) 2.25 gm in 50 mls @ 100 mls/hr IV Q8HR [facility]; Protocol Insulin Human Lispro (Humalog) 0 unit SUB-Q ACHS [facility]; Protocol Last Admin: 09/11/17 08:42 Dose: Not Given Morphine Sulfate (Morphine) 2 mg IV Q4H PRN PRN Reason: Pain, Moderate (4-6) Last Admin: 09/11/17 09:46 Dose: 2 mg Oxycodone/Acetaminophen (Percocet 5/325) 1 tab PO Q6H PRN PRN Reason: Pain, Moderate (4-6) Sodium Chloride (Sodium Chloride Flush Syringe 10 Ml) 10 ml IV BID [facility] Last Admin: 09/11/17 09:51 Dose: 10 ml Sodium Chloride (Sodium Chloride Flush Syringe 10 Ml) 10 ml IV PRN PRN PRN Reason: LINE FLUSH Vancomycin HCl (Vancomycin Pharmacy To Dose) 1 each IV PKCONSULT [facility]; Protocol Exam - Vital Signs Vital signs: Vital Signs Temp Pulse Resp BP Pulse Ox 98.7 F 88 18 123/78 100 09/10/17 07:00 09/10/17 07:00 09/10/17 07:00 09/10/17 07:00 09/10/17 07:00 - Physical Exam Narrative exam: General appearance: Present: no acute distress, well-nourished - EENT Eyes: Present: PERRL ENT: hearing intact, clear oral mucosa - Neck Neck: Present: supple, normal ROM - Respiratory Respiratory effort: normal Respiratory: bilateral: CTA - Cardiovascular Heart rate: 80 Rhythm: regular Heart Sounds: Present: S1 & S2. Absent: rub, click - Extremities Extremities: no ischemia, pulses intact, pulses symmetrical, No edema Peripheral Pulses: within normal limits - Abdominal General gastrointestinal: Present: soft, non-tender, non-distended, normal bowel sounds Male genitourinary: Present: normal - Rectal Rectal Exam: deferred - Integumentary Integumentary: Present: clear, warm, dry - Musculoskeletal Musculoskeletal: gait normal, strength equal bilaterally - Psychiatric Psychiatric: appropriate mood/affect, intact judgment & insight - Neurologic Neurologic: CNII-XII intact, moves all extremities - Allied Health Allied health notes reviewed: nursing, case management Results - Lab Results 09/10/17 17:15 09/10/17 06:55 Most recent lab results Calcium 9.1 mg/dL (8.4-10.2) 09/10/17 06:55 Assessment and Plan Impression: * ESRD * S/p av graft removal * HTN * Anemia in ESRD * Sepsis Plan: * HD q tthsat * no heparin with HD * strict i/os * uf only as tolerated * renal diet * follow up cbc and lytes
[2017-09-11] MEDS ORDERED: NACL 0.9% 100 ML IV PRN (11:01)
[2017-09-11] MEDS ORDERED: ALBURX 25% (ALBUMIN) IV PRN (11:01)
--- NOTE | 2017-09-11 11:54 | Progress Note ---
Assessment and Plan Patient doing well following graft excision. Okay to transfer to floor. He will likely need to be set up with home health nurse for dressing changes. Subjective Date of service: 09/11/17 Principal diagnosis: infected graft Interval history: Patient status post removal of infected graft. He complains of numbness and tingling to his left fourth and fifth digits as well as left arm swelling. This was present prior to his surgery yesterday however. Dressing was changed and his open wounds repacked. There is minimal serosanguineous drainage on his bandages. No erythema. Objective - Constitutional Vitals: Vital Signs - 12hr 09/11/17 09/11/17 09/11/17 00:00 00:47 03:00 Temperature 98.2 F Respiratory 16 16 Rate O2 Sat by Pulse 100 100 Oximetry 09/11/17 09/11/17 09/11/17 03:16 05:00 07:00 Temperature 98.4 F Respiratory 16 16 Rate O2 Sat by Pulse 100 100 Oximetry 09/11/17 11:14 Temperature Respiratory Rate O2 Sat by Pulse 97 Oximetry General appearance: Present: no acute distress - EENT Eyes: PERRL, EOM intact ENT: hearing intact - Neck Neck: supple, normal ROM - Respiratory Respiratory effort: normal - Breasts Breasts: deferred - Cardiovascular Rhythm: regular Extremities: abnormal Extremity abnormal: edema - Gastrointestinal General gastrointestinal: Present: deferred Rectal Exam: deferred - Genitourinary Male genitourinary: deferred - Psychiatric Psychiatric: appropriate mood/affect, cooperative - Labs CBC & Chem 7: 09/10/17 17:15 09/10/17 06:55 Labs: Abnormal lab results 09/10/17 09/10/17 09/10/17 Range/Units 13:52 16:06 17:15 WBC 11.7 H (4.5-11.0) K/mm3 Hgb 11.7 L (11.8-15.2) gm/dl MCH 27 L (28-32) pg RDW 20.4 H (13.2-15.2) % Plt Count 130 L (140-440) K/mm3 Lymph % (Auto) 10.2 L (13.4-35.0) % [place] % (Auto) 7.4 H (0.0-7.3) % [place] # 0.9 H (0.0-0.8) K/mm3 Seg Neutrophils % 80.8 H (40.0-70.0) % Seg Neutrophils # 9.4 H (1.8-7.7) K/mm3 POC Glucose 130 H 183 H (70-105) Hemoglobin A1c (4-6) % Crossmatch 09/10/17 09/10/17 09/10/17 Range/Units 17:15 20:34 21:49 WBC (4.5-11.0) K/mm3 Hgb (11.8-15.2) gm/dl MCH (28-32) pg RDW (13.2-15.2) % Plt Count (140-440) K/mm3 Lymph % (Auto) (13.4-35.0) % [place] % (Auto) (0.0-7.3) % [place] # (0.0-0.8) K/mm3 Seg Neutrophils % (40.0-70.0) % Seg Neutrophils # (1.8-7.7) K/mm3 POC Glucose 160 H (70-105) Hemoglobin A1c 8.9 H (4-6) % Crossmatch See Detail 09/11/17 Range/Units 08:06 WBC (4.5-11.0) K/mm3 Hgb (11.8-15.2) gm/dl MCH (28-32) pg RDW (13.2-15.2) % Plt Count (140-440) K/mm3 Lymph % (Auto) (13.4-35.0) % [place] % (Auto) (0.0-7.3) % [place] # (0.0-0.8) K/mm3 Seg Neutrophils % (40.0-70.0) % Seg Neutrophils # (1.8-7.7) K/mm3 POC Glucose 132 H (70-105) Hemoglobin A1c (4-6) % Crossmatch
[2017-09-11] MEDS: ZOSYN/NS 2.25 GM/50ML 2.25 GM/50 ML BAG IV SCH ×2 (14:00→22:13)
--- NOTE | 2017-09-11 15:50 | Progress Note ---
Assessment and Plan Assessment and plan: Mr. Gómez is 51 yo man with a history of hypertension, asthma, p. neuropathy, NIDDM and ESRD on hemodialysis who presented to outpatient surgery for AV graft removal due to infection. In PACU he was hypotensive, requiring vasopressor and admitted to ICU. -Sepsis with Line infection: continue iv abx and follow ctx, growing GN so far -ESRD on HD: consult renal to manage -AV hemodialysis malfunction: per Dr. Bangura -Hypovolemic shock resolved, off vasopressor: continue to monitor -NIDDM: ada, ssi History Interval history: Patient was seen and examined. Follow-up on current diagnosis. Overnight uneventful. Patient denies any chest pain, shortness breath, nausea/vomiting or severe headaches. Imaging, nursing note, chart, labs and old chart reviewed. Discussed with patient. Hospitalist Physical - Physical exam Narrative exam: GEN: WDWN, NAD, Awake, Alert, Orientated HEENT: NCAT, EOMI, PERRL, OP Clear NECK: supple, no adenopathy, no thyromegaly, no JVD CVS/HEART: RRR, normal S1S2, pulses present bilaterally CHEST/LUNGS: CTA B, Symmetrical chest expansion, good air entry bilaterally GI/Abdomen: soft, NTND, good bowel sounds, no guarding or rebound /Bladder: no suprapubic tenderness, no CVA or paraspinal tenderness EXT/Skin: left arm surgical dsg c/d/i MSK: FROM x 4 Neuro: CN 2-12 grossly intact, no new focal deficits Psych: calm - Constitutional Vitals: Temp Pulse Resp BP Pulse Ox 99.0 F 79 22 155/96 99 09/11/17 15:15 09/11/17 15:15 09/11/17 15:15 09/11/17 15:15 09/11/17 15:15 General appearance: Present: no acute distress Results - Labs CBC & Chem 7: 09/10/17 17:15 09/10/17 06:55 Labs: Laboratory Last Values WBC 11.7 K/mm3 (4.5-11.0) H 09/10/17 17:15 RBC 4.29 M/mm3 (3.65-5.03) 09/10/17 17:15 Hgb 11.7 gm/dl (11.8-15.2) L 09/10/17 17:15 Hct 37.1 % (35.5-45.6) 09/10/17 17:15 MCV 87 fl (84-94) 09/10/17 17:15 MCH 27 pg (28-32) L 09/10/17 17:15 MCHC 32 % (32-34) 09/10/17 17:15 RDW 20.4 % (13.2-15.2) H 09/10/17 17:15 Plt Count 130 K/mm3 (140-440) L 09/10/17 17:15 Lymph % (Auto) 10.2 % (13.4-35.0) L 09/10/17 17:15 [place] % (Auto) 7.4 % (0.0-7.3) H 09/10/17 17:15 Eos % (Auto) 1.2 % (0.0-4.3) 09/10/17 17:15 Baso % (Auto) 0.4 % (0.0-1.8) 09/10/17 17:15 Lymph # 1.2 K/mm3 (1.2-5.4) 09/10/17 17:15 [place] # 0.9 K/mm3 (0.0-0.8) H 09/10/17 17:15 Eos # 0.1 K/mm3 (0.0-0.4) 09/10/17 17:15 Baso # 0.1 K/mm3 (0.0-0.1) 09/10/17 17:15 Seg Neutrophils % 80.8 % (40.0-70.0) H 09/10/17 17:15 Seg Neutrophils # 9.4 K/mm3 (1.8-7.7) H 09/10/17 17:15 Sodium 137 mmol/L (137-145) 09/10/17 06:55 Potassium 3.9 mmol/L (3.6-5.0) 09/10/17 06:55 Chloride 92.8 mmol/L (98-107) L 09/10/17 06:55 Carbon Dioxide 29 mmol/L (22-30) 09/10/17 06:55 Anion Gap 19 mmol/L 09/10/17 06:55 BUN 30 mg/dL (9-20) H 09/10/17 06:55 Creatinine 4.3 mg/dL (0.8-1.5) H 09/10/17 06:55 Estimated GFR 18 ml/min 09/10/17 06:55 BUN/Creatinine Ratio 7 % 09/10/17 06:55 Glucose 98 mg/dL (75-100) 09/10/17 06:55 POC Glucose 151 (70-105) H 09/11/17 12:12 Hemoglobin A1c 8.9 % (4-6) H 09/10/17 20:34 Lactic Acid 1.10 mmol/L (0.7-2.0) 09/10/17 23:39 Calcium 9.1 mg/dL (8.4-10.2) 09/10/17 06:55 Blood Type O POSITIVE 09/10/17 17:15 Antibody Screen Negative 09/10/17 17:15 Crossmatch See Detail 09/10/17 17:15
--- NOTE | 2017-09-11 17:08 | Post Anesthesia Evaluation ---
- Post Anesthesia Evaluation Patient Participated: Yes Airway Patent: Yes Stable Respiratory Function: Yes Nausea/Vomiting: No Temp > 96.8F: Yes Pain Manageable: Yes Adequeate Hydration: Yes Anesthesia Complications: Yes (hypotension requiring vasopressor infusion and transfer to ICU) Block Receding Appropriately: Not Applicable Patient on Ventilator: No
[2017-09-11] MEDS ORDERED: NACL 0.9 (PRIMING MACHINE ONLY DIALYSIS) MC ONE (20:00)
[2017-09-11 20:14] LABS: Hepatitis B Surface Antigen Non-Reactive (Negative)
[2017-09-11 20:48] LABS: Hepatitis A Antibody IgM Non-Reactive (NonReactive); Hepatitis B Core IgM Non-Reactive (NonReactive); Hepatitis C Virus Antibody Non-Reactive (NonReactive)
[2017-09-12] MEDS: ZOSYN/NS 2.25 GM/50ML 2.25 GM/50 ML BAG IV SCH ×3 (05:41→22:21)
[2017-09-12] MEDS: MORPHINE IV PRN ×3 (05:42→23:45)
[2017-09-12] MEDS: HumaLOG SUB-Q SCH ×5 (08:28→22:23)
--- NOTE | 2017-09-12 10:33 | Progress Note ---
Assessment and Plan Patient will need daily dressing changes. He will need wound care to see and evaluate and likely go home with home health wound care. We'll obtain a vascular ultrasound of both arterial and venous systems in his left upper extremity to document appropriate blood flow to his hand. Subjective Date of service: 09/12/17 Principal diagnosis: infected graft Interval history: Patient with left upper extremity AV graft excision. Wounds with mild amount of serosanguinous drainage. Dressings are changed. Patient continues complain of baseline numbness and tingling in his fourth and fifth digits with new onset numbness and tingling in his first digit. The swelling appears stable. Objective - Constitutional Vitals: Vital Signs - 12hr 09/11/17 09/11/17 09/11/17 22:41 22:51 23:00 Temperature Pulse Rate 87 90 84 Pulse Rate [ Right] Respiratory 15 10 L 12 Rate Blood Pressure 127/73 138/78 123/78 O2 Sat by Pulse 96 95 99 Oximetry 09/11/17 09/12/17 09/12/17 23:11 05:42 06:12 Temperature Pulse Rate 87 Pulse Rate [ Right] Respiratory 11 L 17 18 Rate Blood Pressure 123/78 O2 Sat by Pulse Oximetry 09/12/17 08:29 Temperature 99.0 F Pulse Rate Pulse Rate [ 88 Right] Respiratory 20 Rate Blood Pressure 119/85 O2 Sat by Pulse Oximetry General appearance: Present: no acute distress - EENT Eyes: PERRL ENT: hearing intact - Neck Neck: supple, normal ROM - Respiratory Respiratory effort: normal - Breasts Breasts: deferred Extremities: abnormal - Gastrointestinal General gastrointestinal: Present: deferred Rectal Exam: deferred - Genitourinary Male genitourinary: deferred - Musculoskeletal Musculoskeletal: left sided weakness (left hand) - Psychiatric Psychiatric: appropriate mood/affect, cooperative - Labs CBC & Chem 7: 09/10/17 17:15 09/10/17 06:55 Labs: Abnormal lab results 09/11/17 09/11/17 09/11/17 Range/Units 12:12 18:11 21:40 POC Glucose 151 H 168 H 231 H (70-105) 09/12/17 Range/Units 05:24 POC Glucose 131 H (70-105)
--- NOTE | 2017-09-12 10:52 | Progress Note ---
Assessment and Plan Impression: * ESRD * S/p av graft removal * HTN * Anemia in ESRD * Sepsis Plan: * HD q tthsat * no heparin with HD * strict i/os * uf only as tolerated * renal diet * follow up cbc and lytes Subjective Date of service: 09/12/17 Principal diagnosis: infected graft Interval history: resting in bed today Objective - Exam Narrative Exam: General appearance: Present: no acute distress, well-nourished - EENT Eyes: Present: PERRL ENT: hearing intact, clear oral mucosa - Neck Neck: Present: supple, normal ROM - Respiratory Respiratory effort: normal Respiratory: bilateral: CTA - Cardiovascular Heart rate: 80 Rhythm: regular Heart Sounds: Present: S1 & S2. Absent: rub, click - Extremities Extremities: no ischemia, pulses intact, pulses symmetrical, No edema Peripheral Pulses: within normal limits - Abdominal General gastrointestinal: Present: soft, non-tender, non-distended, normal bowel sounds Male genitourinary: Present: normal - Rectal Rectal Exam: deferred - Integumentary Integumentary: Present: clear, warm, dry - Musculoskeletal Musculoskeletal: gait normal, strength equal bilaterally - Psychiatric Psychiatric: appropriate mood/affect, intact judgment & insight - Neurologic Neurologic: CNII-XII intact, moves all extremities - Allied Health Allied health notes reviewed: nursing, case management - Vital Signs Vital signs: Vital Signs - 12hr 09/11/17 09/11/17 09/12/17 23:00 23:11 05:42 Temperature Pulse Rate 84 87 Pulse Rate [ Right] Respiratory 12 11 L 17 Rate Blood Pressure 123/78 123/78 O2 Sat by Pulse 99 Oximetry 09/12/17 09/12/17 06:12 08:29 Temperature 99.0 F Pulse Rate Pulse Rate [ 88 Right] Respiratory 18 20 Rate Blood Pressure 119/85 O2 Sat by Pulse Oximetry - Lab 09/10/17 17:15 09/10/17 06:55 Most recent lab results Calcium 9.1 mg/dL (8.4-10.2) 09/10/17 06:55
[2017-09-12] MEDS: PEPCID PO SCH (10:56)
[2017-09-12] MEDS: HEPARIN SUB-Q SCH ×2 (10:56→22:22)
[2017-09-12] MEDS: ASPIRIN PO SCH (10:56)
[2017-09-12] MEDS: celeXA PO SCH (10:56)
--- NOTE | 2017-09-12 12:07 | Progress Note ---
Assessment and Plan Assessment and plan: Mr. Gómez is 51 yo man with a history of hypertension, asthma, p. neuropathy, NIDDM and ESRD on hemodialysis TTS who presented to outpatient surgery for AV graft removal due to infection. In PACU he was hypotensive, requiring vasopressor and admitted to ICU. -Sepsis with Line infection: continue iv abx and follow ctx, growing GN so far -ESRD on HD: consult renal to manage -AV hemodialysis malfunction: per Dr. Bangura -Hypovolemic shock resolved, off vasopressor: continue to monitor -NIDDM: ada, ssi ok to d/c per Dr. Bangura Surgery Wound culture finalized today, Enterobacter Colacae. History Interval history: Patient was seen and examined. Follow-up on current diagnosis. Overnight uneventful. Patient denies any chest pain, shortness breath, nausea/vomiting or severe headaches. Imaging, nursing note, chart, labs and old chart reviewed. Discussed with patient. Hospitalist Physical - Physical exam Narrative exam: GEN: WDWN, NAD, Awake, Alert, Orientated HEENT: NCAT, EOMI, PERRL, OP Clear NECK: supple, no adenopathy, no thyromegaly, no JVD CVS/HEART: RRR, normal S1S2, pulses present bilaterally CHEST/LUNGS: CTA B, Symmetrical chest expansion, good air entry bilaterally GI/Abdomen: soft, NTND, good bowel sounds, no guarding or rebound /Bladder: no suprapubic tenderness, no CVA or paraspinal tenderness EXT/Skin: left arm surgical dsg c/d/i MSK: FROM x 4 Neuro: CN 2-12 grossly intact, no new focal deficits Psych: calm - Constitutional Vitals: Temp Pulse Resp BP Pulse Ox 99.0 F 88 20 119/85 96 09/12/17 08:29 09/12/17 08:29 09/12/17 08:29 09/12/17 08:29 09/12/17 10:00 General appearance: Present: no acute distress Results - Labs CBC & Chem 7: 09/10/17 17:15 09/10/17 06:55 Labs: Laboratory Last Values WBC 11.7 K/mm3 (4.5-11.0) H 09/10/17 17:15 RBC 4.29 M/mm3 (3.65-5.03) 09/10/17 17:15 Hgb 11.7 gm/dl (11.8-15.2) L 09/10/17 17:15 Hct 37.1 % (35.5-45.6) 09/10/17 17:15 MCV 87 fl (84-94) 09/10/17 17:15 MCH 27 pg (28-32) L 09/10/17 17:15 MCHC 32 % (32-34) 09/10/17 17:15 RDW 20.4 % (13.2-15.2) H 09/10/17 17:15 Plt Count 130 K/mm3 (140-440) L 09/10/17 17:15 Lymph % (Auto) 10.2 % (13.4-35.0) L 09/10/17 17:15 Tate % (Auto) 7.4 % (0.0-7.3) H 09/10/17 17:15 Eos % (Auto) 1.2 % (0.0-4.3) 09/10/17 17:15 Baso % (Auto) 0.4 % (0.0-1.8) 09/10/17 17:15 Lymph # 1.2 K/mm3 (1.2-5.4) 09/10/17 17:15 Tate # 0.9 K/mm3 (0.0-0.8) H 09/10/17 17:15 Eos # 0.1 K/mm3 (0.0-0.4) 09/10/17 17:15 Baso # 0.1 K/mm3 (0.0-0.1) 09/10/17 17:15 Seg Neutrophils % 80.8 % (40.0-70.0) H 09/10/17 17:15 Seg Neutrophils # 9.4 K/mm3 (1.8-7.7) H 09/10/17 17:15 Sodium 137 mmol/L (137-145) 09/10/17 06:55 Potassium 3.9 mmol/L (3.6-5.0) 09/10/17 06:55 Chloride 92.8 mmol/L (98-107) L 09/10/17 06:55 Carbon Dioxide 29 mmol/L (22-30) 09/10/17 06:55 Anion Gap 19 mmol/L 09/10/17 06:55 BUN 30 mg/dL (9-20) H 09/10/17 06:55 Creatinine 4.3 mg/dL (0.8-1.5) H 09/10/17 06:55 Estimated GFR 18 ml/min 09/10/17 06:55 BUN/Creatinine Ratio 7 % 09/10/17 06:55 Glucose 98 mg/dL (75-100) 09/10/17 06:55 POC Glucose 131 (70-105) H 09/12/17 05:24 Hemoglobin A1c 8.9 % (4-6) H 09/10/17 20:34 Lactic Acid 1.10 mmol/L (0.7-2.0) 09/10/17 23:39 Calcium 9.1 mg/dL (8.4-10.2) 09/10/17 06:55 Hepatitis A IgM Ab Non-reactive (NonReactive) 09/11/17 18:50 Hep Bs Antigen Non-reactive (Negative) 09/11/17 18:50 Hep B Core IgM Ab Non-reactive (NonReactive) 09/11/17 18:50 Hepatitis C Antibody Non-reactive (NonReactive) 09/11/17 18:50 Blood Type O POSITIVE 09/10/17 17:15 Antibody Screen Negative 09/10/17 17:15 Crossmatch See Detail 09/10/17 17:15
--- NOTE | 2017-09-12 12:38 | Progress Note ---
Assessment and Plan 51 y/o male with infected AV graft, removed with post-op hypotension, now resolved. stable from a critical care standpoint will sign off. Subjective Date of service: 09/12/17 Principal diagnosis: infected graft Interval history: Successful transfer out of ICU. stable on room air. BP stable Objective - Constitutional Vitals: Vital Signs - 12hr 09/12/17 09/12/17 09/12/17 05:42 06:12 08:29 Temperature 99.0 F Pulse Rate Pulse Rate [ 88 Right] Respiratory 17 18 20 Rate Blood Pressure 119/85 O2 Sat by Pulse Oximetry 09/12/17 10:00 Temperature Pulse Rate 87 Pulse Rate [ Right] Respiratory Rate Blood Pressure O2 Sat by Pulse 96 Oximetry - Labs CBC & Chem 7: 09/10/17 17:15 09/10/17 06:55 Labs: Abnormal lab results 09/11/17 09/11/17 09/12/17 Range/Units 18:11 21:40 05:24 POC Glucose 168 H 231 H 131 H (70-105)
[2017-09-12] MEDS: PEPCID IV SCH (13:55)
[2017-09-12] MEDS: BENADRYL IV PRN (16:48)
[2017-09-12] MEDS: ROXICODONE PO PRN (17:44)
[2017-09-13] MEDS: ZOSYN/NS 2.25 GM/50ML 2.25 GM/50 ML BAG IV SCH (06:21)
[2017-09-13] MEDS: BENADRYL IV PRN ×4 (06:33→23:48)
[2017-09-13] MEDS: MORPHINE IV PRN ×2 (06:34→10:56)
[2017-09-13] MEDS: HumaLOG SUB-Q SCH ×4 (07:30→22:20)
[2017-09-13 08:15] LABS: Hemoglobin 11.3 gm/dl (11.8-15.2); Mean Corpuscular HGB Conc 31 % (32-34); Mean Corpuscular Hemoglobin 27 pg (28-32); Mean Corpuscular Volume 87 fl (84-94); Platelet Count 130 K/mm3 (140-440); Red Blood Count 4.16 M/mm3 (3.65-5.03); Red Cell Distribution Width 19.8 % (13.2-15.2)
[2017-09-13 08:41] LABS: Calcium 9.1 mg/dL (8.4-10.2)
--- NOTE | 2017-09-13 09:37 | Operative Report ---
Operative Report Operative Report: Operative note: Date: 09/10/2017 Preoperative diagnosis: Infected left arm AV graft Postoperative diagnosis: Same. Operation: Excision of left arm infected AV graft. Endarterectomy of brachial artery was vein patch angioplasty. Surgeon: Xochitl Osei. Asst.: Faustino Boston Anesthesia: Gen. EBL: 200 mL Findings: Thick scar tissue at the perianastomotic portion of brachial artery, intimal hyperplasia requiring endarterectomy Indications: 51-year-old gentleman had placed brachial axillary AV graft for dialysis access. He subsequently developed thrombosis and required percutaneous thrombectomy. This graft was again nonfunctioning, however patient noticed purulent discharge from arterial portion of the graft. Patient was discussed risks, benefits and alternatives of active graft excision procedure and he chose to proceed, signed informed consent. Operative details: Patient was brought to the operating room and placed in supine position was left upper extremity on extension table. Left approximately was prepped and draped in sterile fashion. Timeout was performed and all team members in agreement. First incision was created in the previous scar the arterial anastomotic site in the longitudinal fashion just above the elbow crease was 15 blade. It was carried down using electrocautery. Upon entering the most noticed a lot of thick scar tissue. Initially, arterial perianastomotic graft portion was dissected and further dissected toward anastomosis. It was very difficult to identify structures including brachial artery, however the anastomotic suture itself was identified. It felt to be unsafe to dissect the brachial artery at the anastomotic site due to inability to identify any structures including nerves. At this point, decision was made to dissect brachial artery at the proximal and distal closed with portions in order to achieve proximal and distal control. Incision was extended proximally was 15 blade and carried down with electrocautery. The typical groove was identified. Using Doppler brachial artery was located and dissected using electrocautery and Metzenbaum scissors. Initially I encountered brachial vein and median nerve. The artery was much deeper to those structures, however, I was able to dissect and preserve both of those structures. Brachial artery was taken on the vessel loop. Then I extended my incision distally and dissected brachial artery at the distal portion. All structures were preserved and brachial artery was taken on vessel loop for distal control. The patient was heparinized. Proximal distal control was gained. Then, graft was taken off brachial anastomosis, I attempted to advance Jcarlos catheters for proximal distal control at the present anastomotic portion however there was no lumen identified. At this point extended arteriotomy distally and proximally using Greene scissors to identify a lumen. Jcarlos catheters with stopcocks were positioned at the distal and proximal proximal portion. Jcarlos's were inserted this point. Arterial lumen had a lot of intimal hyperplasia. Endarterectomy was performed. Cephalic vein at the forearm portion was premarked previously with ultrasound. At this point and dissected cephalic vein portion for vein patch. All degrees were removed from brachial artery and it was flushed. Vein patch angioplasty was performed using 6-0 Prolene in a circumferential fashion. Before completion it was flushed and fogarties were removed. Wound was irrigated copiously with saline. Deep layer was approximated using 3-0 Vicryl just above the anastomotic portion. Skin was left open approximated with dav just at the corners. Next, incision was created to the venous portion in a longitudinal fashion and the upper portion of the arm. It was carried down with electrocautery. Anastomosis was identified dissecting from the graft portion. Graft was taken off the anastomosis and the stent was removed. Axillary vein was closed using 4 -0 Prolene. Wound was again copiously irrigated with a saline. The wound was closed with dav. I made an incision along middle portion of AV graft through the portion with purulent discharge. Upon entering of the cavity there was purulence noted. Swab cultures were performed on the anaerobic and aerobic sets. Graft was removed and sent for microbiology. Purulent edge portions were trimmed using curved Longoria scissors. That incision was also irrigated with saline. That wound was packed with Betadine soaked sponge. Sterile dressings were applied using sterile 4 x 4's. Cephalic vein harvest site was closed with dav and 4 x 4 with Tegaderm placed. Kerlix roll was used for first layer and Parish wrap was used for second layer. Upon completion with radial pulse was palpable, all needles and sponge counts were correct 2. Patient tolerates procedure well and was transferred to PACU in stable condition
--- NOTE | 2017-09-13 10:00 | Progress Note ---
Assessment and Plan Impression: * ESRD * S/p av graft removal * HTN * Anemia in ESRD * Sepsis Plan: * HD q tthsat * no heparin with HD * consult id for abx recommendations * strict i/os * uf only as tolerated * renal diet * follow up cbc and lytes Subjective Date of service: 09/13/17 Principal diagnosis: infected graft Interval history: resting in bed today Objective - Exam Narrative Exam: General appearance: Present: no acute distress, well-nourished - EENT Eyes: Present: PERRL ENT: hearing intact, clear oral mucosa - Neck Neck: Present: supple, normal ROM - Respiratory Respiratory effort: normal Respiratory: bilateral: CTA - Cardiovascular Heart rate: 80 Rhythm: regular Heart Sounds: Present: S1 & S2. Absent: rub, click - Extremities Extremities: no ischemia, pulses intact, pulses symmetrical, No edema Peripheral Pulses: within normal limits - Abdominal General gastrointestinal: Present: soft, non-tender, non-distended, normal bowel sounds Male genitourinary: Present: normal - Rectal Rectal Exam: deferred - Integumentary Integumentary: Present: clear, warm, dry - Musculoskeletal Musculoskeletal: gait normal, strength equal bilaterally - Psychiatric Psychiatric: appropriate mood/affect, intact judgment & insight - Neurologic Neurologic: CNII-XII intact, moves all extremities - Allied Health Allied health notes reviewed: nursing, case management - Vital Signs Vital signs: Vital Signs - 12hr 09/12/17 09/13/17 09/13/17 23:45 00:15 06:34 Temperature Pulse Rate Respiratory 18 18 18 Rate Blood Pressure O2 Sat by Pulse Oximetry 09/13/17 09/13/17 07:04 07:51 Temperature 98.0 F Pulse Rate 71 Respiratory 17 22 Rate Blood Pressure 127/42 O2 Sat by Pulse 96 Oximetry - Lab 09/13/17 07:26 09/13/17 07:26 Most recent lab results Calcium 9.1 mg/dL (8.4-10.2) 09/13/17 07:26
[2017-09-13] MEDS ORDERED: BENADRYL IV ONE (10:54)
[2017-09-13] MEDS: ASPIRIN PO SCH (10:55)
[2017-09-13] MEDS: celeXA PO SCH (10:55)
[2017-09-13] MEDS: PEPCID PO SCH (10:55)
[2017-09-13] MEDS: HEPARIN SUB-Q SCH ×2 (10:56→21:42)
[2017-09-13] MEDS: ROXICODONE PO PRN ×3 (11:17→23:43)
--- NOTE | 2017-09-13 11:33 | Progress Note ---
Assessment and Plan Assessment and plan: Mr. Gómez is 51 yo man with a history of hypertension, asthma, p. neuropathy, NIDDM and ESRD on hemodialysis TTS who presented to outpatient surgery for AV graft removal due to infection. In PACU he was hypotensive, requiring vasopressor and admitted to ICU, next day, vasopressor was able to be weaned off and he transferred to Med-Surg floor. -Sepsis with Line infection/AV graft left arm infection s/p removal on 09/10/17: continue iv abx and follow ctx, consulted and d/w ID, Dr. Sanders -ESRD on HD: consult renal to manage -AV hemodialysis malfunction: per Dr. Bangura -Hypovolemic shock resolved, off vasopressosr: continue to monitor -NIDDM: ada, ssi -Morbid Obese, BMI 44.8: lifestyle modification Follow up on all the wound cultures, but most of them are growing Enterobacter Colacae. Allergic rash bilateral legs to iv zosyn, d/w ID, will start Aztreonam History Interval history: Patient was seen and examined. Follow-up on current diagnosis. Overnight uneventful. Patient denies any chest pain, shortness breath, nausea/vomiting or severe headaches. Imaging, nursing note, chart, labs and old chart reviewed. Discussed with patient. Hospitalist Physical - Physical exam Narrative exam: GEN: WDWN, NAD, Awake, Alert, Orientated HEENT: NCAT, EOMI, PERRL, OP Clear NECK: supple, no adenopathy, no thyromegaly, no JVD CVS/HEART: RRR, normal S1S2, pulses present bilaterally CHEST/LUNGS: CTA B, Symmetrical chest expansion, good air entry bilaterally GI/Abdomen: soft, NTND, good bowel sounds, no guarding or rebound /Bladder: no suprapubic tenderness, no CVA or paraspinal tenderness EXT/Skin: left arm surgical dsg c/d/i MSK: FROM x 4 Neuro: CN 2-12 grossly intact, no new focal deficits Psych: calm - Constitutional Vitals: Temp Pulse Resp BP Pulse Ox 98.0 F 71 22 127/42 96 09/13/17 07:51 09/13/17 07:51 09/13/17 07:51 09/13/17 07:51 09/13/17 07:51 General appearance: Present: no acute distress Results - Labs CBC & Chem 7: 09/13/17 07:26 09/13/17 07:26 Labs: Laboratory Last Values WBC 5.5 K/mm3 (4.5-11.0) 09/13/17 07:26 RBC 4.16 M/mm3 (3.65-5.03) 09/13/17 07:26 Hgb 11.3 gm/dl (11.8-15.2) L 09/13/17 07:26 Hct 36.0 % (35.5-45.6) 09/13/17 07: MCV 87 fl (84-94) 09/13/17 07: MCH 27 pg (28-32) L 09/13/17 07: MCHC 31 % (32-34) L 09/13/17 07: RDW 19.8 % (13.2-15.2) H 09/13/17 07:26 Plt Count 130 K/mm3 (140-440) L 09/13/17 07:26 Lymph % (Auto) 10.2 % (13.4-35.0) L 09/10/17 17:15 [place] % (Auto) 7.4 % (0.0-7.3) H 09/10/17 17:15 Eos % (Auto) 1.2 % (0.0-4.3) 09/10/17 17:15 Baso % (Auto) 0.4 % (0.0-1.8) 09/10/17 17:15 Lymph # 1.2 K/mm3 (1.2-5.4) 09/10/17 17:15 [place] # 0.9 K/mm3 (0.0-0.8) H 09/10/17 17:15 Eos # 0.1 K/mm3 (0.0-0.4) 09/10/17 17:15 Baso # 0.1 K/mm3 (0.0-0.1) 09/10/17 17:15 Seg Neutrophils % 80.8 % (40.0-70.0) H 09/10/17 17:15 Seg Neutrophils # 9.4 K/mm3 (1.8-7.7) H 09/10/17 17:15 Sodium 139 mmol/L (137-145) 09/13/17 07:26 Potassium 4.2 mmol/L (3.6-5.0) 09/13/17 07:26 Chloride 96.0 mmol/L (98-107) L 09/13/17 07:26 Carbon Dioxide 26 mmol/L (22-30) 09/13/17 07:26 Anion Gap 21 mmol/L 09/13/17 07:26 BUN 29 mg/dL (9-20) H 09/13/17 07:26 Creatinine 4.2 mg/dL (0.8-1.5) H 09/13/17 07:26 Estimated GFR 18 ml/min 09/13/17 07:26 BUN/Creatinine Ratio 7 % 09/13/17 07:26 Glucose 144 mg/dL (75-100) H 09/13/17 07:26 POC Glucose 145 (70-105) H 09/13/17 05:57 Hemoglobin A1c 8.9 % (4-6) H 09/10/17 20:34 Lactic Acid 1.10 mmol/L (0.7-2.0) 09/10/17 23:39 Calcium 9.1 mg/dL (8.4-10.2) 09/13/17 07:26 Hepatitis A IgM Ab Non-reactive (NonReactive) 09/11/17 18:50 Hep Bs Antigen Non-reactive (Negative) 09/11/17 18:50 Hep B Core IgM Ab Non-reactive (NonReactive) 09/11/17 18:50 Hepatitis C Antibody Non-reactive (NonReactive) 09/11/17 18:50 Blood Type O POSITIVE 09/10/17 17:15 Antibody Screen Negative 09/10/17 17:15 Crossmatch See Detail 09/10/17 17:15
--- NOTE | 2017-09-13 11:52 | Progress Note ---
Assessment and Plan Bandages changed and wounds re-evaluated. Await ET nurse dayanaal. Consider wound vac. D/c planning for outpt wound care. Antibiotics via Hospitalist vs ID (recently consulted). Zosyn stopped earlier today due to concerns of allergic reaction (given new onset rash). Suspect this may actually be a contact dermatitis given the rash is found only on his lower legs (potentially from SCD's given the location). Will defer to the medicine service judgment. Continued numbness to left 4th and 5th fingers (present for last 2 months per the pt) without significant change. "Possible" numbness to thumb, though unchanged from yesterday. Arterial and venous duplex prelimb report and images reviewed. Suspect he has adequate blood flow to his left hand without signs of dvt. Subjective Date of service: 09/13/17 Principal diagnosis: infected graft Interval history: Patient is awake and alert. Continued numbness to left 4th and 5th fingers (present for last 2 months) without significant change. Possible numbness to thumb, though unchanged from yesterday. New onset bilat lower leg rash starting last pm. Objective - Constitutional Vitals: Vital Signs - 12hr 09/12/17 09/13/17 09/13/17 23:45 00:15 06:34 Temperature Pulse Rate Respiratory 18 18 18 Rate Blood Pressure O2 Sat by Pulse Oximetry 09/13/17 09/13/17 07:04 07:51 Temperature 98.0 F Pulse Rate 71 Respiratory 17 22 Rate Blood Pressure 127/42 O2 Sat by Pulse 96 Oximetry General appearance: Present: no acute distress - EENT Eyes: EOM intact ENT: hearing intact - Neck Neck: supple - Respiratory Respiratory effort: normal Extremities: abnormal (bandages removed, Upper and lower incisions intact with dav in place. Packing removed from mid upper arm wounds. No significant drainage at present (see pictures below).) Extremity abnormal: erythema (lower leg erythema primarily to LLE (macular- see picture below).) - Neurologic Neurologic: other (numbness to ldft 4th and 5th fingers with mild numbness to 1st finger. Good motor function.) - Psychiatric Psychiatric: appropriate mood/affect, intact judgment & insight, cooperative - Additional findings Additional findings: - Labs CBC & Chem 7: 09/13/17 07:26 09/13/17 07:26 Labs: Abnormal lab results 09/12/17 09/12/17 09/12/17 Range/Units 11:38 17:06 21:43 Hgb (11.8-15.2) gm/dl MCH (28-32) pg MCHC (32-34) % RDW (13.2-15.2) % Plt Count (140-440) K/mm3 Chloride (98-107) mmol/L BUN (9-20) mg/dL Creatinine (0.8-1.5) mg/dL Glucose (75-100) mg/dL POC Glucose 186 H 277 H 123 H (70-105) 09/13/17 09/13/17 09/13/17 Range/Units 05:57 07:26 07:26 Hgb 11.3 L (11.8-15.2) gm/dl MCH 27 L (28-32) pg MCHC 31 L (32-34) % RDW 19.8 H (13.2-15.2) % Plt Count 130 L (140-440) K/mm3 Chloride 96.0 L (98-107) mmol/L BUN 29 H (9-20) mg/dL Creatinine 4.2 H (0.8-1.5) mg/dL Glucose 144 H (75-100) mg/dL POC Glucose 145 H (70-105)
[2017-09-13] MEDS ORDERED: AZACTAM 1,000 MG in NACL 0.9% 20 ML IV SCH (12:00)
--- NOTE | 2017-09-13 12:27 | Consultation ---
History of Present Illness - Reason for Consult Consult date: 09/13/17 AVG site infection Requesting physician: ANDRE LONDONO - History of Present Illness 51 y/o male male with history of ESRD on HD via AVG; admitted on due to low blood pressure and fever for 48h. Patient noticed drainage pus from the left AV graft for last 5 day. Patient followed up with vascular surgery Clinic and it was decided to remove AV graft. Noted also skin erythema and edema surrounding site. In the ED, temp 98.7, HR 88, R 18, O2 sat 100, BP 123/78. WBC 8. Hg 12.9. Plat 134. Creat 4.3. Patient was taken to the OR on 09/10 for AVG removal surgical cultures grew Enterobacter cloacae. No blood cx sent. Pt was placed on zosyn and developed a rash. Microbiology: Wound cultures: 09/10 x 3 Enterobacter cloacae Current Antimicrobials: Aztreonam 09/13 Previous Antimicrobials: Zosyn 09/11 Past History Past Medical History: CAD, ESRD, other (Neuropathy) Past Surgical History: Other (aVM removal) Social history: no significant social history Family history: no significant family history Medications and Allergies Allergies Allergy/AdvReac Type Severity Reaction Status Date / Time piperacillin [From Zosyn] Allergy Rash Verified 09/13/17 12:40 tazobactam [From Zosyn] Allergy Rash Verified 09/13/17 12:40 Home Medications Medication Instructions Recorded Confirmed Last Taken Type Albuterol Sulfate [Ventolin HFA] 2 puff IH Q6H PRN 12/08/16 09/10/17 09/09/17 23 :00 History Aspirin [Aspirin TAB] 325 mg PO QDAY 12/08/16 09/10/17 09/09/17 23:00 History Carvedilol [Coreg] 6.25 mg PO BID 12/08/16 09/10/17 09/09/17 23:00 History Citalopram Hydrobromide [celeXA] 20 mg PO DAILY 12/08/16 09/10/17 09/09/17 23: 00 History Gabapentin [Neurontin] 300 mg PO Q8HR 12/08/16 09/10/17 09/09/17 23:00 History HYDROcodone/ACETAMINOPHEN [Vicodin 1 each PO BID 12/08/16 09/08/17 07/12/17 History HP 10-300 mg TAB] Oxycodone HCl/Acetaminophen 1 each PO BID 12/08/16 09/08/17 07/12/17 History [Percocet 7.5/325 mg] glipiZIDE [Glucotrol] 5 mg PO BID 12/08/16 09/10/17 09/09/17 23:00 History HYDROcodone/ACETAMINOPHEN [Vicodin 1 tab PO Q6HR PRN #14 tablet 12/10/16 Unknown Rx HP 10-300 mg TAB] HYDROcodone/APAP 7.5-325 [[place] 1 each PO Q6HR PRN #20 tablet 07/19/17 09/08/17 Unknown Rx 7.5/325] HYDROcodone/ACETAMINOPHEN [[place] 1 each PO Q4-6H #30 tablet 09/10/17 Unknown Rx 10-325 Tablet] Active Meds: Active Medications Albumin Human (Alburx 25% (Albumin)) 25 gm IV LACY PRN PRN Reason: Hypotension Alprazolam (Xanax) 0.25 mg PO Q8H PRN PRN Reason: Anxiety Aspirin (Aspirin) 325 mg PO QDAY [facility] Last Admin: 09/13/17 10:55 Dose: 325 mg Citalopram Hydrobromide (Celexa) 20 mg PO DAILY [facility] Last Admin: 09/13/17 10:55 Dose: 20 mg Dextrose (D50w (25gm) Syringe) 50 ml IV PRN PRN PRN Reason: Hypoglycemia Diphenhydramine HCl (Benadryl) 25 mg IV Q6H PRN PRN Reason: Itching Last Admin: 09/13/17 10:56 Dose: 25 mg Famotidine (Pepcid) 20 mg PO DAILY [facility] Last Admin: 09/13/17 10:55 Dose: 20 mg Heparin Sodium (Porcine) (Heparin) 5,000 unit SUB-Q Q12HR [facility] Last Admin: 09/13/17 10:56 Dose: 5,000 unit Sodium Chloride (Nacl 0.9%) 100 mls @ 999 mls/hr IV LACY PRN PRN Reason: Hypotension Aztreonam 2 gm/ Sodium (Chloride) 20 mls @ 2 mls/min IV ONCE ONE Stop: 09/13/17 13:09 Aztreonam 500 mg/ Sodium (Chloride) 20 mls @ 2 mls/min IV Q12HR [facility] Insulin Human Lispro (Humalog) 0 unit SUB-Q ACHS SHANDA; Protocol Last Admin: 09/13/17 07:30 Dose: Not Given Morphine Sulfate (Morphine) 2 mg IV Q4H PRN PRN Reason: Pain, Moderate (4-6) Last Admin: 09/13/17 06:34 Dose: 2 mg Oxycodone HCl (Roxicodone) 10 mg PO Q6H PRN PRN Reason: Pain, Severe (7-10) Last Admin: 09/13/17 11:17 Dose: 10 mg Review of Systems All systems: negative (as per HPI rest neg) Physical Examination - Physical Exam Narrative exam: General appearance: Alert in NAD, conversant Eyes: anicteric sclerae, moist conjunctivae; no lid-lag; PERRLA HENT: Atraumatic; oropharynx clear Neck: Trachea midline; supple, no thyromegaly or lymphadenopathy Lungs: CTA, with normal respiratory effort and no intercostal retractions CV: RRR, no murmurs Abdomen: Soft, non-tender; no masses or hepatosplenomegaly Extremities: right arm surg wound open mild erythema, no purulence seen Skin: Normal temperature, turgor and texture; no rash, ulcers or subcutaneous nodules Psych: Appropriate affect, alert and oriented to person, place and time. Neuro: alert and oriented x 3. Moving all extermities Lines: - Constitutional Vitals: Vital Signs Temp Pulse Resp BP Pulse Ox 98.0 F 71 22 127/42 96 09/13/17 07:51 09/13/17 07:51 09/13/17 07:51 09/13/17 07:51 09/13/17 07:51 Temperature -Last 24 Hours Temperature 98.0 F Temperature 98.2 F Temperature 97.9 F Results - Labs CBC & Chem 7: 09/13/17 07:26 09/13/17 07:26 Labs: Abnormal lab results 09/12/17 09/12/17 09/12/17 Range/Units 11:38 17:06 21:43 Hgb (11.8-15.2) gm/dl MCH (28-32) pg MCHC (32-34) % RDW (13.2-15.2) % Plt Count (140-440) K/mm3 Chloride (98-107) mmol/L BUN (9-20) mg/dL Creatinine (0.8-1.5) mg/dL Glucose (75-100) mg/dL POC Glucose 186 H 277 H 123 H (70-105) 09/13/17 09/13/17 09/13/17 Range/Units 05:57 07:26 07:26 Hgb 11.3 L (11.8-15.2) gm/dl MCH 27 L (28-32) pg MCHC 31 L (32-34) % RDW 19.8 H (13.2-15.2) % Plt Count 130 L (140-440) K/mm3 Chloride 96.0 L (98-107) mmol/L BUN 29 H (9-20) mg/dL Creatinine 4.2 H (0.8-1.5) mg/dL Glucose 144 H (75-100) mg/dL POC Glucose 145 H (70-105) 09/13/17 Range/Units 11:51 Hgb (11.8-15.2) gm/dl MCH (28-32) pg MCHC (32-34) % RDW (13.2-15.2) % Plt Count (140-440) K/mm3 Chloride (98-107) mmol/L BUN (9-20) mg/dL Creatinine (0.8-1.5) mg/dL Glucose (75-100) mg/dL POC Glucose 174 H (70-105) Assessment and Plan Assessment: 1) Sepsis: Present on admission, manifested by fever at home, hypotension. Etiology most likely due to AVG infection. 2) Left arm AVG infection: due to Enterobacter cloacae resistent to amp/ceftin, sens to levaquin, cefepime, ceftriaxone 3) ESRD on HD 4) Rash to zosyn ? real allergy vs contact dermatitis - only seen on right calf ? Plan: -obtain blood cultures -CRP -TTE -continue aztreonam for now -will start fortaz inthe AM to eval for rash -upon discharge will consider fortaz 1 g IV on HD total 14 days Thank you for your consultation, will follow up with you. Wilma Foster MD Infectious Diseases Specialist [facility] ([facility]) M [phone] O [phone]
[2017-09-13] MEDS ORDERED: AZACTAM 2 GM in NACL 0.9% 20 ML IV ONE (13:00)
[2017-09-13] MEDS: AZACTAM IV SCH (23:35)
[2017-09-13] MEDS: NACL 0.9% IV SCH (23:35)
[2017-09-14] MEDS: HumaLOG SUB-Q SCH ×4 (08:29→22:23)
--- NOTE | 2017-09-14 09:43 | Progress Note ---
Assessment and Plan Impression: * ESRD * S/p av graft removal * HTN * Anemia in ESRD * Sepsis Plan: * HD q tthsat * no heparin with HD * id for abx recommendations--noted, arrange outpt fortax for 2 weeks * strict i/os * uf only as tolerated * renal diet * follow up cbc and lytes prn * ok to dc from renal standpoint Subjective Date of service: 09/14/17 Principal diagnosis: infected graft Interval history: resting in bed today Objective - Exam Narrative Exam: General appearance: Present: no acute distress, well-nourished - EENT Eyes: Present: PERRL ENT: hearing intact, clear oral mucosa - Neck Neck: Present: supple, normal ROM - Respiratory Respiratory effort: normal Respiratory: bilateral: CTA - Cardiovascular Heart rate: 80 Rhythm: regular Heart Sounds: Present: S1 & S2. Absent: rub, click - Extremities Extremities: no ischemia, pulses intact, pulses symmetrical, No edema Peripheral Pulses: within normal limits - Abdominal General gastrointestinal: Present: soft, non-tender, non-distended, normal bowel sounds Male genitourinary: Present: normal - Rectal Rectal Exam: deferred - Integumentary Integumentary: Present: clear, warm, dry - Musculoskeletal Musculoskeletal: gait normal, strength equal bilaterally - Psychiatric Psychiatric: appropriate mood/affect, intact judgment & insight - Neurologic Neurologic: CNII-XII intact, moves all extremities - Allied Health Allied health notes reviewed: nursing, case management - Vital Signs Vital signs: Vital Signs - 12hr 09/14/17 09/14/17 09/14/17 00:15 07:27 09:19 Temperature 97.6 F 97.6 F Pulse Rate 74 68 Respiratory 18 16 Rate Blood Pressure 107/50 104/56 O2 Sat by Pulse 94 95 98 Oximetry - Lab 09/13/17 07:26 09/13/17 07:26 Most recent lab results Calcium 9.1 mg/dL (8.4-10.2) 09/13/17 07:26
--- NOTE | 2017-09-14 13:51 | Progress Note ---
Assessment and Plan Patient is a 47 yo man with a history of hypertension and DM type 2 who presents to [facility] ED with 2 episodes of syncope today. Patient reports being in his usual state of health prior to arrival, and then while at work, he was breaking down wood pallets, then he developed sudden onset of weakness, warmth, dizziness, lightheadedness. After, he passed out. He doesn't know how long he was unconscious, but spontaneous awoke at some time. He denies any prior episode. He denies, biting his tongue, bladder or bowel incontinent. He denies headaches or chest pains or palpitations. There was no headache, neck pain, chest pain, abdominal pain, shortness of breath. He reports no convulsive activity that he can recall. After the event, he was getting "checked out" and he stood up very quickly, and then "passed out" again. The patient denies DVT, pulmonary embolus risk factors. He denies sudden thunderclap headache, chest pain, neck pain or neck stiffness. -Syncope, appears autonomic dysfunction: remote telemetry, get orthostatics, CT HEAD WAS NORMAL (because he may have hit his head), carotid doppler report pending. Echo 50 - 55% with normal left ventricular function -Uncontrolled hypertension with urgency: Optimize with oral antihypertensive medications Lisinopril 40 mg 2 amlodipine 10 mg. Continue with when necessary iv hydralazine -Uncontrolled DM type 2 with hyperglycemia: Continue with ssi, ada, a1c -Hyponatremia, dehydration/hyposm: ivf, -DVT prophylaxis: sq heparin full code Subjective Date of service: 09/14/17 Principal diagnosis: syncope, uncontrolled diabetes mellitus Interval history: Patient seen and examined. Denies any syncope, headache. Objective - Constitutional Vitals: Vital Signs - 12hr 09/14/17 09/14/17 09/14/17 07:27 09:19 10:35 Temperature 97.6 F 98.7 F Pulse Rate 68 79 Respiratory 16 18 Rate Blood Pressure 104/56 141/74 O2 Sat by Pulse 95 98 Oximetry 09/14/17 09/14/17 09/14/17 10:45 11:00 11:15 Temperature Pulse Rate 70 74 75 Respiratory Rate Blood Pressure 120/70 109/62 100/63 O2 Sat by Pulse Oximetry 06/26/18 06/26/18 06/26/18 11:30 11:45 12:00 Temperature Pulse Rate 75 78 75 Respiratory Rate Blood Pressure 92/59 87/64 95/48 O2 Sat by Pulse Oximetry 09/14/17 09/14/17 09/14/17 12:15 12:30 12:45 Temperature Pulse Rate 73 83 74 Respiratory Rate Blood Pressure 95/53 127/74 98/53 O2 Sat by Pulse Oximetry 09/14/17 13:00 Temperature Pulse Rate 74 Respiratory Rate Blood Pressure 89/57 O2 Sat by Pulse Oximetry General appearance: Present: no acute distress, well-nourished - EENT Eyes: PERRL, EOM intact - Neck Neck: supple, normal ROM - Respiratory Respiratory effort: normal Respiratory: bilateral: CTA - Cardiovascular Rhythm: regular Heart Sounds: Present: S1 & S2. Absent: gallop, rub Extremities: pulses intact, No edema, normal color, Full ROM - Gastrointestinal General gastrointestinal: Present: soft, non-tender, non-distended, normal bowel sounds - Integumentary Integumentary: clear, warm, dry - Musculoskeletal Musculoskeletal: 1, strength equal bilaterally - Neurologic Neurologic: moves all extremities - Psychiatric Psychiatric: memory intact, appropriate mood/affect, intact judgment & insight - Labs CBC & Chem 7: 09/13/17 07:26 09/13/17 07:26 Labs: Abnormal lab results 09/10/17 09/13/17 09/13/17 Range/Units 17:15 16:32 20:09 POC Glucose 116 H (70-105) C-Reactive Protein 6.20 H (0.00-1.30) mg/dL Crossmatch See Detail 09/13/17 09/14/17 Range/Units 21:53 06:25 POC Glucose 196 H 180 H (70-105) C-Reactive Protein (0.00-1.30) mg/dL Crossmatch
--- NOTE | 2017-09-14 15:20 | Progress Note ---
Assessment and Plan -Sepsis with Line infection: continue iv abx and follow ctx, growing GN so far -ESRD on HD: consult renal to manage -AV hemodialysis malfunction: per Dr. Bangura -Hypovolemic shock resolved, off vasopressor: continue to monitor -NIDDM: ada, ssi -DVT with heparin Subjective Date of service: 09/14/17 Principal diagnosis: syncope, uncontrolled diabetes mellitus Interval history: Patient seen and examined. Denies any syncope, fever, chills or headache. Objective - Exam Narrative Exam: Constitutional: Well-nourished well-developed. In no distress Head: Normocephalic atraumatic Eyes: Pupils are equal round and reactive to light Nose: No enlarged turbinates, no septal deviation. Mouth: Moist mucous membranes. Neck: Supple no thyromegaly. No bruit. No JVD Heart: Regular rate and rhythm, S1-S2 abnormal. No rubs murmurs or gallop Lungs: Clear to auscultation bilaterally no rales or rhonchi Abdomen: Soft, nontender. Bowel sound are present. Extremities: No edema no cyanosis and no clubbing. Neuro: Alert oriented Oriented x3. No focal sensory or motor deficit. Skin: No rashes no hyperemic spots Psychiatry: Euthymic. Calm. - Constitutional Vitals: Vital Signs - 12hr 09/14/17 09/14/17 09/14/17 07:27 09:19 10:35 Temperature 97.6 F 98.7 F Pulse Rate 68 79 Respiratory 16 18 Rate Blood Pressure 104/56 141/74 O2 Sat by Pulse 95 98 Oximetry 09/14/17 09/14/17 09/14/17 10:45 11:00 11:15 Temperature Pulse Rate 70 74 75 Respiratory Rate Blood Pressure 120/70 109/62 100/63 O2 Sat by Pulse Oximetry 09/14/17 09/14/17 09/14/17 11:30 11:45 12:00 Temperature Pulse Rate 75 78 75 Respiratory Rate Blood Pressure 92/59 87/64 95/48 O2 Sat by Pulse Oximetry 09/14/17 09/14/17 09/14/17 12:15 12:30 12:45 Temperature Pulse Rate 73 83 74 Respiratory Rate Blood Pressure 95/53 127/74 98/53 O2 Sat by Pulse Oximetry 06/26/18 06/26/18 06/26/18 13:00 13:15 13:30 Temperature Pulse Rate 74 73 83 Respiratory Rate Blood Pressure 89/57 91/55 123/89 O2 Sat by Pulse Oximetry 09/14/17 09/14/17 09/14/17 13:45 14:00 14:15 Temperature 97.9 F Pulse Rate 72 71 75 Respiratory 20 Rate Blood Pressure 96/50 103/57 109/63 O2 Sat by Pulse Oximetry - Labs CBC & Chem 7: 09/13/17 07:26 09/13/17 07:26 Labs: Abnormal lab results 09/10/17 09/13/17 09/13/17 Range/Units 17:15 16:32 20:09 POC Glucose 116 H (70-105) C-Reactive Protein 6.20 H (0.00-1.30) mg/dL Crossmatch See Detail 09/13/17 09/14/17 Range/Units 21:53 06:25 POC Glucose 196 H 180 H (70-105) C-Reactive Protein (0.00-1.30) mg/dL Crossmatch
[2017-09-14] MEDS: HEPARIN SUB-Q SCH ×2 (15:43→21:40)
--- NOTE | 2017-09-14 15:47 | Progress Note ---
Assessment and Plan Assessment: 1) Sepsis: resolved. Etiology most likely due to AVG infection. CRP=6.2. Blood cx so far negative. 2) Left arm AVG infection: due to Enterobacter cloacae resistent to amp/ceftin, sens to levaquin, cefepime, ceftriaxone, s/p AVG removal on 09/10/17 3) ESRD on HD 4) Rash to zosyn ? real allergy vs contact dermatitis - only seen on right calf ? Plan: -f/u blood cultures -stop aztreonam -will start fortaz today - monitor for rash -upon discharge will do fortaz 1 g IV on HD total 14 days until 09/24/17 -ID clinic f/u on 10/07 Please call me for questions or if rash develops. I am signing off. Thank you for your consultation, will follow up with you. Wilma Foster MD Infectious Diseases Specialist [facility] ([facility]) M [phone] O [phone] Subjective Date of service: 09/14/17 Principal diagnosis: syncope, uncontrolled diabetes mellitus Interval history: Feels ok no complaints. Microbiology: Wound cultures: 09/10 x 3 Enterobacter cloacae Blood cx: 09/13 ngtd Current Antimicrobials: Aztreonam 09/13 Previous Antimicrobials: Zosyn 09/11 Objective - Exam Narrative Exam: General appearance: Alert in NAD, conversant Eyes: anicteric sclerae, moist conjunctivae; no lid-lag; PERRLA HENT: Atraumatic; oropharynx clear Neck: Trachea midline; supple, no thyromegaly or lymphadenopathy Lungs: CTA, with normal respiratory effort and no intercostal retractions CV: RRR, no murmurs Abdomen: Soft, non-tender; no masses or hepatosplenomegaly Extremities: right arm surg wound open mild erythema, no purulence seen Skin: Normal temperature, turgor and texture; no rash, ulcers or subcutaneous nodules Psych: Appropriate affect, alert and oriented to person, place and time. Neuro: alert and oriented x 3. Moving all extermities Lines: - Constitutional Vitals: Vital Signs Temp Pulse Resp BP Pulse Ox 98.0 F 86 18 112/75 98 09/14/17 15:32 09/14/17 15:32 09/14/17 15:32 09/14/17 15:32 09/14/17 15:32 Temperature -Last 24 Hours Temperature 98.0 F Temperature 97.9 F Temperature 98.7 F Temperature 97.6 F Temperature 97.6 F Temperature 97.5 F - Labs CBC & Chem 7: 09/13/17 07:26 09/13/17 07:26 Labs: Abnormal lab results 09/10/17 09/13/17 09/13/17 Range/Units 17:15 16:32 20:09 POC Glucose 116 H (70-105) C-Reactive Protein 6.20 H (0.00-1.30) mg/dL Crossmatch See Detail 09/13/17 09/14/17 Range/Units 21:53 06:25 POC Glucose 196 H 180 H (70-105) C-Reactive Protein (0.00-1.30) mg/dL Crossmatch
[2017-09-14] MEDS: celeXA PO SCH (15:49)
[2017-09-14] MEDS: ASPIRIN PO SCH (15:49)
[2017-09-14] MEDS: ROXICODONE PO PRN ×2 (15:49→21:52)
[2017-09-14] MEDS: PEPCID PO SCH (15:49)
[2017-09-14] MEDS: BENADRYL IV PRN (15:49)
[2017-09-14] MEDS: NACL 0.9% IV SCH (15:50)
[2017-09-14] MEDS: AZACTAM IV SCH (15:50)
[2017-09-14] MEDS ORDERED: MAXIPIME/NS 2 GM/100 ML 2 GM/100 ML BAG IV SCH (20:00)
--- NOTE | 2017-09-15 10:02 | Progress Note ---
Assessment and Plan Okay to discharge home from a vascular standpoint. The patient will need to follow up in wound care clinic and may also need home health wound care for dressing changes in between the times that he is at wound care clinic. Subjective Date of service: 09/15/17 Principal diagnosis: syncope, uncontrolled diabetes mellitus Interval history: Patient status post left upper arm AV graft removal. Wound care has seen and will follow up as an outpatient tomorrow. Dressings were changed. Objective - Constitutional Vitals: Vital Signs - 12hr 09/14/17 09/15/17 09/15/17 22:50 07:42 08:40 Temperature 98.6 F 98.1 F Pulse Rate 80 79 Respiratory 20 22 Rate Blood Pressure 137/78 135/71 O2 Sat by Pulse 95 99 99 Oximetry General appearance: Present: no acute distress - EENT Eyes: PERRL ENT: hearing intact - Neck Neck: supple, normal ROM - Respiratory Respiratory effort: normal - Breasts Breasts: deferred - Cardiovascular Rhythm: regular Extremities: no ischemia, abnormal (postsurgical changes to the left upper arm. Minimal drainage.) - Gastrointestinal General gastrointestinal: Present: deferred Rectal Exam: deferred - Genitourinary Male genitourinary: deferred - Psychiatric Psychiatric: appropriate mood/affect, cooperative - Labs CBC & Chem 7: 09/13/17 07:26 09/13/17 07:26 Labs: Abnormal lab results 09/14/17 09/14/17 09/15/17 Range/Units 16:26 22:07 05:32 POC Glucose 192 H 172 H 141 H (70-105)
[2017-09-15] MEDS: celeXA PO SCH (10:13)
[2017-09-15] MEDS: ASPIRIN PO SCH (10:13)
[2017-09-15] MEDS: PEPCID PO SCH (10:13)
[2017-09-15] MEDS: HEPARIN SUB-Q SCH (10:14)
[2017-09-15] MEDS: HumaLOG SUB-Q SCH ×2 (10:14→13:31)
--- NOTE | 2017-09-15 10:26 | Progress Note ---
Assessment and Plan Impression: * ESRD * S/p av graft removal * HTN * Anemia in ESRD * Sepsis Plan: * HD q tthsat * no heparin with HD * id for abx recommendations--noted, arrange outpt fortax for 2 weeks * strict i/os * uf only as tolerated * renal diet * follow up cbc and lytes prn * ok to dc from renal standpoint Subjective Date of service: 09/15/17 Principal diagnosis: syncope, uncontrolled diabetes mellitus Interval history: resting in bed today Objective - Exam Narrative Exam: General appearance: Present: no acute distress, well-nourished - EENT Eyes: Present: PERRL ENT: hearing intact, clear oral mucosa - Neck Neck: Present: supple, normal ROM - Respiratory Respiratory effort: normal Respiratory: bilateral: CTA - Cardiovascular Heart rate: 80 Rhythm: regular Heart Sounds: Present: S1 & S2. Absent: rub, click - Extremities Extremities: no ischemia, pulses intact, pulses symmetrical, No edema Peripheral Pulses: within normal limits - Abdominal General gastrointestinal: Present: soft, non-tender, non-distended, normal bowel sounds Male genitourinary: Present: normal - Rectal Rectal Exam: deferred - Integumentary Integumentary: Present: clear, warm, dry - Musculoskeletal Musculoskeletal: gait normal, strength equal bilaterally - Psychiatric Psychiatric: appropriate mood/affect, intact judgment & insight - Neurologic Neurologic: CNII-XII intact, moves all extremities - Allied Health Allied health notes reviewed: nursing, case management - Vital Signs Vital signs: Vital Signs - 12hr 09/14/17 09/15/17 09/15/17 22:50 07:42 08:40 Temperature 98.6 F 98.1 F Pulse Rate 80 79 Respiratory 20 22 Rate Blood Pressure 137/78 135/71 O2 Sat by Pulse 95 99 99 Oximetry - Lab 09/13/17 07:26 09/13/17 07:26 Most recent lab results Calcium 9.1 mg/dL (8.4-10.2) 09/13/17 07:26
--- NOTE | 2017-09-15 12:51 | Discharge Summary ---
Providers - Providers Date of Admission: 09/10/17 19:42 Date of discharge: 09/15/17 Attending physician: ANDRE LONDONO 09/10/17 19:42 Consult to Dietitian/Nutrition [CONS] Routine Physician Instructions: Reason For Exam: Reason for Consult: Diet education Consult to Physician [CONS] Routine Comment: Consulting Provider: ALEXANDRE AG Physician Instructions: Reason For Exam: Graft removal 09/10/17 19:48 Consult to Physician [CONS] Routine Comment: Consulting Provider: JORDAN FLETCHER Physician Instructions: Reason For Exam: ESRD 09/11/17 15:51 Consult to Physician [CONS] Routine Comment: Consulting Provider: WILMA GODWIN Physician Instructions: Reason For Exam: AV graft infection 09/12/17 10:33 Consult to Case Management [CONS] Routine Services Needed at Discharge: Home Health Services Notified:: copy left for cm Comment:: dressing changes LUE Consult to Wound/ET Nurse [CONS] Routine Reason For Exam: wound eval 09/12/17 12:17 Consult to Physician [CONS] Routine Comment: Consulting Provider: WILMA GODWIN Physician Instructions: Reason For Exam: E. colacae AV graft infection, ESRD 09/14/17 15:54 Consult to Case Management [CONS] Stat Services Needed at Discharge: Other Notified:: icer air conditioning Additional Physician Instructions: MID Diagnosis: AVG infection due to Enterobacter Abx: fortaz 1 g IV on HD total 14 days until 09/24/17. ID clinic f/u on 10/07 please make apt Labs: CBC, BMP, CRP send to ID office at fax [phone] Wilma Sanders MD Primary care physician: [employer]ISHER Hospitalization Condition: Stable Hospital course: Mr. Gómez is 51 yo man with a history of hypertension, asthma, p. neuropathy, NIDDM and ESRD on hemodialysis TTS who presented to outpatient surgery for AV graft removal due to infection. In PACU he was hypotensive, requiring vasopressor and admitted to ICU, next day, vasopressor was able to be weaned off and he transferred to Med-Surg floor. -Sepsis with Line infection/AV graft left arm infection s/p removal on 09/10/17: continue iv abx and follow ctx, consulted and d/w ID, Dr. Sanders -ESRD on HD: consult renal to manage -AV hemodialysis malfunction: per Dr. Bangura -Hypovolemic shock resolved, off vasopressosr: continue to monitor -NIDDM: ada, ssi -Morbid Obese, BMI 44.8: lifestyle modification Follow up on all the wound cultures, but most of them are growing Enterobacter Colacae. Allergic rash bilateral legs to iv zosyn, d/w ID, will start Aztreonam==> d/w ID , Dr. Sanders who has arranged for patient to get Fortaz which is not available here. Disposition: DC-01 TO HOME OR SELFCARE Time spent for discharge: 36 minutes Core Measure Documentation - Palliative Care Palliative Care/ Comfort Measures: Not Applicable - Core Measures Any of the following diagnoses?: none - VTE Discharge Requirements Deep Vein Thrombosis/Pulmonary Embolism Present on Admission: No Has pt received <5 days of overlap therapy or INR<2.0: No Anticoagulant overlap therapy prescribed at discharge: No Contraindication No Overlap Therapy order at DC: Not Indicated Exam - Physical Exam Narrative exam: GEN: WDWN, NAD, Awake, Alert, Orientated HEENT: NCAT, EOMI, PERRL, OP Clear NECK: supple, no adenopathy, no thyromegaly, no JVD CVS/HEART: RRR, normal S1S2, pulses present bilaterally CHEST/LUNGS: CTA B, Symmetrical chest expansion, good air entry bilaterally GI/Abdomen: soft, NTND, good bowel sounds, no guarding or rebound /Bladder: no suprapubic tenderness, no CVA or paraspinal tenderness EXT/Skin: left arm surgical dsg c/d/i MSK: FROM x 4 Neuro: CN 2-12 grossly intact, no new focal deficits Psych: calm - Constitutional Vitals: Temp Pulse Resp BP Pulse Ox 98.1 F 79 22 135/71 99 09/15/17 07:42 09/15/17 07:42 09/15/17 07:42 09/15/17 07:42 09/15/17 08:40 Plan Activity: other (no strenous activity) Diet: renal Wound: per your surgeon's advice, per wound nurse instructions Follow up with: RISA JERONIMO MD [Primary Care Provider] - 7 Days ALEXANDRE AG DO [Staff Physician] - 7 Days WILMA GODWIN MD [Staff Physician] - 7 Days JORDAN FLECTHER MD [Staff Physician] - 7 Days Prescriptions: HYDROcodone/ACETAMINOPHEN [[place] 10-325 Tablet] 1 each PO Q4-6H #30 tablet
--- NOTE | 2017-09-15 14:52 | Vascular Lab Report ---
LEFT UPPER EXTREMITY VENOUS DUPLEX: REASON FOR EXAM: Pain and swelling of the left upper extremity COMMENTS ON THE LEFT: A small amount of superficial venous thrombosis is seen in the cephalic vein at the elbow. The remaining veins visualized are freely compressible without evidence of internal echogenicity. Spontaneous and phasic flow is present proximally. COMMENTS ON THE RIGHT: A limited study of the jugular and subclavian veins shows no evidence of thrombus. IMPRESSION: Acute superficial venous thrombosis of the left cephalic vein at the elbow. No evidence of acute DVT in the left arm.
--- NOTE | 2017-09-15 14:57 | Vascular Lab Report ---
Upper Extremity Arterial Duplex Reason for exam: numbness left arm Comments: Triphasic arterial flow is noted proximally. Monophasic flow is noted distally. A small amount of scattered plaque is seen. All named arteries appear to be patent. Impression: No noted occlusions of the left upper extremity arteries. Monophasic flow is seen in the radial and ulnar arteries.
[2017-09-15 15:05] VITALS: BP 131/71
[2017-09-16] MEDS ORDERED: NACL 0.9% IV SCH (18:00)
[2017-09-16] MEDS ORDERED: TAZICEF IV SCH (18:00)
== END 2017-09-15 17:28 | disposition home health service (06) | DRG 252 ==
LOC: OR 06:21 → CC1 19:42 → 3A 09-11 23:35
PROVIDERS: ADMIT Internal Medicine; ATTEND Internal Medicine
PROC: 03C80ZZ Extirpation of Matter from Left Brachial Artery, Open Approach (ICD-10-PCS; principal; 2017-09-10)
PROC: 03Q80ZZ Repair Left Brachial Artery, Open Approach (ICD-10-PCS; 2017-09-10)
PROC: 03U807Z Supplement Left Brachial Artery with Autologous Tissue Substitute, Open Approach (ICD-10-PCS; 2017-09-10)
PROC: 5A1D70Z Performance of Urinary Filtration, Intermittent, Less than 6 Hours Per Day (ICD-10-PCS; 2017-09-11)
PROC: 5A1D70Z Performance of Urinary Filtration, Intermittent, Less than 6 Hours Per Day (ICD-10-PCS; 2017-09-14)
DX: T82.7XXA Infection and inflammatory reaction due to other cardiac and vascular devices, implants and grafts, initial encounter (principal); A41.9 Sepsis, unspecified organism; R57.1 Hypovolemic shock; N18.6 End stage renal disease; I12.0 Hypertensive chronic kidney disease with stage 5 chronic kidney disease or end stage renal disease; F17.210 Nicotine dependence, cigarettes, uncomplicated; G89.29 Other chronic pain; E11.22 Type 2 diabetes mellitus with diabetic chronic kidney disease; J45.909 Unspecified asthma, uncomplicated; E11.42 Type 2 diabetes mellitus with diabetic polyneuropathy; D63.1 Anemia in chronic kidney disease; I25.10 Atherosclerotic heart disease of native coronary artery without angina pectoris; I77.3 Arterial fibromuscular dysplasia; Y83.2 Surgical operation with anastomosis, bypass or graft as the cause of abnormal reaction of the patient, or of later complication, without mention of misadventure at the time of the procedure; Z88.8 Allergy status to other drugs, medicaments and biological substances; Z79.899 Other long term (current) drug therapy; Z79.82 Long term (current) use of aspirin; Z99.2 Dependence on renal dialysis; Z82.49 Family history of ischemic heart disease and other diseases of the circulatory system; Y92.89 Other specified places as the place of occurrence of the external cause; I95.81 Postprocedural hypotension
CPT/HCPCS: 36415; 80048; 80074; 82140; 82962; 83036; 85025; 85027; 86140; 86850; 86900; 86901; 86920; 87040; 87075; 87076; 87116; 87186; 94760; C1757; J0690; J0692; J1200; J1644; J1815; J2250; J2270; J2370; J2405; J2543; J2704; J3010; J3370; J7030; J7040; J7050; P9047

== ENCOUNTER 2018-09-08 07:49 | Day surgery (SDC) | payer MEDICARE ==
[~2018-09-08 07:49] MED LIST changes: +HEPARIN 10,000 UNITS/10 ML ONE; +MARCAINE 0.25% INFILTRATI ONE; +NACL 0.9% 500 ML 500 ML ONE; +SODIUM BICARBONATE ONE; +XYLOCAINE 1%/ EPI 1:100,000 INFILTRATI ONE
[2018-09-08] MEDS ORDERED: SUBLIMAZE IV PRN (08:33)
--- NOTE | 2018-09-08 08:33 | Anesthesia Consultation ---
Anesthesia Consult and Med Hx Date of service: 09/08/18 - Airway Anesthetic Teeth Evaluation: Good ROM Head & Neck: Adequate Mental/Hyoid Distance: Inadequate Mallampati Class: Class III Intubation Access Assessment: Possibly Difficult - Pulmonary Exam CTA: Yes - Cardiac Exam Cardiac Exam: RRR - Pre-Operative Health Status ASA Pre-Surgery Classification: ASA4 Proposed Anesthetic Plan: General - Pulmonary Hx Smoking: Yes (occasional black and mild) SOB: Yes (chronic SOB; unchanged ) COPD: Yes (no home O2 use in >1 yr) Hx Sleep Apnea: No (ONEL PRE SCREEN HIGH RISK) - Cardiovascular System Hx Hypertension: Yes (inconsistent compliance with antihypertensives) Hx Coronary Artery Disease: Yes Hx Heart Attack/AMI: No Hx Percutaneous Transluminal Coronary Angioplasty (PTCA): No Hx Cardia Arrhythmia: No Hx Peripheral Vascular Disease: Yes - Central Nervous System Hx Seizures: No CVA: No Hx Psychiatric Problems: Yes (anxiety, depression) - Gastrointestinal Hx Gastroesophageal Reflux Disease: No - Endocrine Hx End Stage Renal Disease: Yes (last HD 09/06/18) Hx Liver Disease: No Hx Non-Insulin Dependent Diabetes: Yes Hx Thyroid Disease: No - Hematic Hx Anemia: Yes - Other Systems Hx Alcohol Use: Yes (occas) Hx Obesity: Yes - Additional Comments Anesthesia Medical History Comments: No hx anesthetic complications. Stable orthopnea. Previous TTE and nuc ST from 2017 reviewed. Normal EF, no significant valvular lesions, pHTN noted. Currently no symptoms of decompensation. >4mets functional capacity.
--- NOTE | 2018-09-08 08:38 | Anesthesia Day of Surgery ---
Anesthesia Day of Surgery - Day of Surgery Patient Examined: Yes Patient H&P Reviewed: Yes Patient is NPO: Yes Beta Blockers: Yes
[2018-09-08] MEDS ORDERED: COREG PO NR (08:39)
[2018-09-08] MEDS ORDERED: PROVENTIL IH NR (08:45)
[2018-09-08] MEDS ORDERED: DIPRIVAN 10 MG/ML IV ONE (08:56)
[2018-09-08] MEDS ORDERED: SUBLIMAZE ONE (08:56)
[2018-09-08] MEDS ORDERED: VERSED IV NR (09:00)
[2018-09-08 09:20] LABS: Hemoglobin 11.2 gm/dl (11.8-15.2); Mean Corpuscular HGB Conc 32 % (32-34); Mean Corpuscular Volume 89 fl (84-94); Platelet Count 137 K/mm3 (140-440); Red Blood Count 3.95 M/mm3 (3.65-5.03); Red Cell Distribution Width 15.8 % (13.2-15.2)
[2018-09-08] MEDS ORDERED: XYLOCAINE CARDIAC IV ONE (11:01)
[2018-09-08] MEDS ORDERED: DECADRON ONE (11:33)
[2018-09-08] MEDS ORDERED: ZOFRAN ONE (11:33)
[2018-09-08] MEDS ORDERED: MARCAINE 0.25% INFILTRATI ONE ×2 (11:56)
[2018-09-08] MEDS ORDERED: XYLOCAINE 1%/ EPI 1:100,000 INFILTRATI ONE (11:56)
[2018-09-08] MEDS ORDERED: NACL 0.9% IR ONE (11:56)
[2018-09-08] MEDS ORDERED: HEPARIN 10,000 UNITS/10 ML 2,000 UNIT in NACL 0.9% 500 ML 500 ML IR ONE (11:57)
--- NOTE | 2018-09-08 13:05 | Operative Report ---
Operative Report Operative Report: Date of procedure: 09/08/2018 t Pre-operative diagnosis: Malfunction surgically created hemodialysis fistula right arm, end-stage renal disease Post-operative diagnosis: Same Procedure name(s): Revision of right radiocephalic AV fistula using elevation technique Surgeon: Marvin Blevins MD [employer] Director: Faustino Alston PA-C Anesthesia: Gen. EBL: Minimal Specimen(s): None Complications: None Findings: Fistula with good size. Excellent thrill and bruit. Procedure: Patient supine position after adequate levels of general endotracheal anesthesia was obtained the right arm was prepped and draped using standard sterile technique. He sounded and then used to identify the exact course of the vein and overlying these cephalic fistula just above the antecubital fossa longitudinal incision was made and extended all the way up to the proximal arm to anesthetize skin and then carried down through the subcutaneous tissue using a combination of electrocautery and sharp dissection. This delineated the entire anterior surface of the vein. The vein was then controlled using vessel loops and dissected free from its vascular bed ligating appropriate side branches as necessary eating a large siphoning side branches near the antecubital fossa. Fistula flow was considerably improved after this lateral ligation. The subcutaneous tissue and the initial vascular harvest bed was then closed using 3-0 Vicryl in a running fashion and the fistula was laid in the newly created bed and then the region was then closed directly over the fistula using running 4-0 Monocryl subcuticular. This now elevated the vein to a subdermal position. The incision was blocked with Marcaine 0.5% plain prior to closure. It was sealed with Dermabond. A shunt was then extubated and returned to the recovery room in stable condition having tolerated procedure well. Sponge and needle counts correct.
--- NOTE | 2018-09-08 13:09 | Short Stay Summary ---
Short Stay Documentation Date of service: 09/08/18 Narrative H&P: Patient admitted to the operative suite for outpatient revision of a poorly functioning dialysis fistula in the right arm - History H&P: obtained from office - Allergies and Medications Current Medications: Allergies piperacillin [From Zosyn] Allergy (Verified 08/09/18 17:50) Rash tazobactam [From Zosyn] Allergy (Verified 08/09/18 17:50) Rash Home Medications Medication Instructions Recorded Confirmed Last Taken Type Albuterol Sulfate [Ventolin HFA] 2 puff IH Q6H PRN 12/08/16 09/08/18 09/08/18 09:20 History Aspirin 325 mg PO QDAY 12/08/16 09/08/18 09/06/18 09:00 History Carvedilol [Coreg] 6.25 mg PO BID 12/08/16 09/08/18 09/08/18 09:20 History Citalopram Hydrobromide [celeXA] 20 mg PO DAILY 12/08/16 09/08/18 09/07/18 09:00 History Gabapentin [Neurontin] 300 mg PO Q8HR 12/08/16 09/01/18 09/09/17 23:00 History glipiZIDE [Glucotrol] 5 mg PO BID 12/08/16 09/08/18 09/07/18 16:00 History HYDROcodone/APAP 5-325 [[place] 1 each PO Q6HR PRN #20 tablet 09/15/17 09/01/18 Unknown Rx 5/325] Sitagliptin Phosphate [Januvia] 25 mg PO DAILY 09/01/18 09/08/18 09/07/18 09:00 History Sucroferric Oxyhydroxide(Nf) 1,000 mg PO TID 09/01/18 09/08/18 09/07/18 17:00 History [Velphoro (Nf)] Vit B Complx C/Folic Acid/Zinc 0.8 mg PO DAILY 09/01/18 09/08/18 09/07/18 09:00 History [Dialyvite 800-Zinc 15 Tab] Active Medications Albuterol (Proventil) 2.5 mg IH PREOP NR Stop: 09/08/18 16:00 Last Admin: 09/08/18 09:20 Dose: 2.5 mg Documented by: Carvedilol (Coreg) 6.25 mg PO ONCE NR Stop: 09/08/18 16:00 Last Admin: 09/08/18 09:25 Dose: 6.25 mg Documented by: Fentanyl (Sublimaze) 50 mcg IV Q5MIN PRN PRN Reason: Pain , Severe (7-10) Stop: 09/08/18 16:00 Sodium Chloride (Nacl 0.9% 1000 Ml) 1,000 mls @ 42 mls/hr IV DIRECT SHANDA Last Admin: 09/08/18 09:20 Dose: 42 mls/hr Documented by: Cefazolin Sodium (Ancef/Sterile Water 2 Gm/20 Ml) 2 gm in 20 mls @ 80 mls/hr IV PREOP NR; Protocol Stop: 09/08/18 23:00 Midazolam HCl (Versed) 2 mg IV PREOP NR Stop: 09/08/18 23:59 - Brief post op/procedure progress note Date of procedure: 09/08/18 Procedure: Date of procedure: 09/08/2018 t Pre-operative diagnosis: Malfunction surgically created hemodialysis fistula right arm, end-stage renal disease Post-operative diagnosis: Same Procedure name(s): Revision of right radiocephalic AV fistula using elevation technique Surgeon: Marvin Blevins MD Deputy County Attorney: Faustino Alston PA-C Anesthesia: Gen. EBL: Minimal Specimen(s): None Complications: None Findings: Fistula with good size. Excellent thrill and bruit. Procedure: Patient supine position after adequate levels of general endotracheal anesthesia was obtained the right arm was prepped and draped using standard sterile technique. He sounded and then used to identify the exact course of the vein and overlying these cephalic fistula just above the antecubital fossa longitudinal incision was made and extended all the way up to the proximal arm to anesthetize skin and then carried down through the subcutaneous tissue using a combination of electrocautery and sharp dissection. This delineated the entire anterior surface of the vein. The vein was then controlled using vessel loops and dissected free from its vascular bed ligating appropriate side branches as necessary eating a large siphoning side branches near the antecubital fossa. Fistula flow was considerably improved after this lateral ligation. The subcutaneous tissue and the initial vascular harvest bed was then closed using 3-0 Vicryl in a running fashion and the fistula was laid in the newly created bed and then the region was then closed directly over the fistula using running 4-0 Monocryl subcuticular. This now elevated the vein to a subdermal position. The incision was blocked with Marcaine 0.5% plain prior to closure. It was sealed with Dermabond. A shunt was then extubated and returned to the recovery room in stable condition having tolerated procedure well. Sponge and needle counts correct. - Hospital course Hospital course: Unremarkable - Disposition Condition at discharge: Good Disposition: DC-01 TO HOME OR SELFCARE Short Stay Discharge Plan Activity: advance as tolerated Weight Bearing Status: Full Weight Bearing Diet: renal Wound: keep clean and dry Special Instructions: no heavy lifting Follow up with: STEVE FERRARO MD [Primary Care Provider] - 7 Days MARVIN BLEVINS MD [Staff Physician] - 14 Days Prescriptions: HYDROcodone/APAP 5-325 [[place] 5-325 mg TAB] 1 each PO Q6HR PRN #20 tablet PRN Reason: Pain
[2018-09-08 13:32] VITALS: BP 125/74
--- NOTE | 2018-09-08 17:08 | Post Anesthesia Evaluation ---
- Post Anesthesia Evaluation Patient Participated: Yes Airway Patent: Yes Stable Respiratory Function: Yes Nausea/Vomiting: No Temp > 96.8F: Yes Pain Manageable: Yes Adequeate Hydration: Yes Anesthesia Complications: No
== END 2018-09-08 07:50 | disposition home or self-care (01) ==
LOC: OR 07:49
PROVIDERS: ATTEND Surgery Vascular Surgery
DX: T82.898A Other specified complication of vascular prosthetic devices, implants and grafts, initial encounter (principal); I13.2 Hypertensive heart and chronic kidney disease with heart failure and with stage 5 chronic kidney disease, or end stage renal disease; N18.6 End stage renal disease; I50.9 Heart failure, unspecified; E11.22 Type 2 diabetes mellitus with diabetic chronic kidney disease; E11.42 Type 2 diabetes mellitus with diabetic polyneuropathy; G62.9 Polyneuropathy, unspecified; G43.909 Migraine, unspecified, not intractable, without status migrainosus; E11.51 Type 2 diabetes mellitus with diabetic peripheral angiopathy without gangrene; J43.9 Emphysema, unspecified; E66.9 Obesity, unspecified; F32.9 Major depressive disorder, single episode, unspecified; F41.9 Anxiety disorder, unspecified; F17.210 Nicotine dependence, cigarettes, uncomplicated; Z79.899 Other long term (current) drug therapy; Z79.82 Long term (current) use of aspirin; Z98.890 Other specified postprocedural states; Z72.89 Other problems related to lifestyle; Z68.39 Body mass index [BMI] 39.0-39.9, adult; Z86.2 Personal history of diseases of the blood and blood-forming organs and certain disorders involving the immune mechanism; Y83.8 Other surgical procedures as the cause of abnormal reaction of the patient, or of later complication, without mention of misadventure at the time of the procedure; Y92.89 Other specified places as the place of occurrence of the external cause
CPT/HCPCS: 36415; 36832; 80048; 82962; 85025; J0690; J1100; J1644; J2001; J2405; J2704; J3010; J7030; J7040